=== PATIENT | female | born 1945 | race Caucasian/White ===

== ENCOUNTER 2017-02-08 05:23 | Emergency (ER) | payer MEDICARE, BC ==
--- NOTE | 2017-02-08 06:04 | EDM.PDOC ---
<Jeff Caldera - Last Filed: 02/08/17 06:56> ED HPI GENERAL MEDICAL PROBLEM - General Chief Complaint: General Stated Complaint: R SIDE BACK / ABDOMINAL PAIN Time Seen by Provider: 02/08/17 05:46 Source of Information: Reports: Patient History Limitations: Reports: No Limitations - History of Present Illness INITIAL COMMENTS - FREE TEXT/NARRATIVE: This lady complains of right sided mid back and abdominal pain. It started sometime last night. She said she's been burping a lot. It seemed to start in the right mid back and inserted radiate downward and then around into the right side of her abdomen area and sort of like a cramp. The abdominal portion seems to have gotten better now but it's mostly just her back. She does have a history of kidney stones but says this is different. She denies any chest pain or palpitations. There is no nausea vomiting or diarrhea there is no dysuria. She denies any constipation Right Middle Back Pain Score (Numeric/FACES): 8 - Related Data Allergies Allergy/AdvReac Type Severity Reaction Status Date / Time amoxicillin [Amoxicillin] Allergy Rash Verified 01/20/16 18:25 erythromycin base Allergy Rash Verified 01/20/16 18:25 [Erythromycin Base] glyburide Allergy Rash Verified 01/20/16 18:25 metformin Allergy Rash Verified 01/20/16 18:25 nabumetone Allergy Rash Verified 01/20/16 18:25 Home Meds: Home Meds Aspirin [Children's Aspirin] 81 mg PO DAILY 06/29/13 [History] Atenolol 50 mg PO DAILY 06/29/13 [History] Vitamin E 400 unit PO DAILY 06/29/13 [History] Past Medical History Cardiovascular History: Reports: Hypertension Genitourinary History: Reports: Renal Calculus 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, Musculoskeletal History: Reports: Fracture Neurological History: Reports: Migraines Endocrine/Metabolic History: Reports: Diabetes, Type II - Infectious Disease History Infectious Disease History: Reports: Chicken Pox, Measles, Mumps - Past Surgical History HEENT Surgical History: Reports: Adenoidectomy, Tonsillectomy GI Surgical History: Reports: Appendectomy Female Surgical History: Reports: Ureteral Stent Social & Family History - Tobacco Use Smoking Status *Q: Never Smoker Second Hand Smoke Exposure: No - Caffeine Use Caffeine Use: Reports: None - Recreational Drug Use Recreational Drug Use: No ED ROS GENERAL - Review of Systems Review Of Systems: ROS reveals no pertinent complaints other than HPI. ED EXAM, GENERAL - Physical Exam Exam: See Below Exam Limited By: No Limitations General Appearance: Alert, WD/WN, No Apparent Distress Eye Exam: Bilateral Eye: Normal Inspection Respiratory/Chest: Lungs Clear Cardiovascular: Regular Rate, Rhythm, No Murmur Peripheral Pulses: 2+: Radial (L), Radial (R) GI/Abdominal: Other (Bowel sounds hypoactive. Abdomen is soft on the left but the right side of the abdomen feels full with a mass effect like constipation.) Back Exam: Other (No muscle spasm palpable. There is some mild tenderness in the area of the ribs just superior to the right side CVA. No actual right CVA tenderness however) Extremities: Normal Inspection Neurological: Alert, Oriented Psychiatric: Normal Affect Skin Exam: Warm, Dry Course - Vital Signs Last Recorded V/S: Last Vital Signs Temp 96.6 F 02/08/17 05:33 Pulse 66 02/08/17 08:51 Resp 16 02/08/17 08:51 BP 124/67 02/08/17 08:51 Pulse Ox 99 02/08/17 08:51 - Orders/Labs/Meds Orders: Active Orders 24 hr Category Date Time Status EKG Documentation Completion [RC] ASDIRECTED Care 02/08/17 06:00 Active Peripheral IV Care [RC] . DIRECTED Care 02/08/17 08:32 Active CULTURE URINE [RM] Urgent Lab 02/08/17 09:38 Uncollected Iopamidol [Isovue-300 (61%)] Med 02/08/17 08:48 Active 100 ml IV . DIRECTED PRN Sodium Chloride 0.9% [Normal Saline] 1,000 ml Med 02/08/17 08:45 Active IV ASDIRECTED Sodium Chloride 0.9% [Normal Saline] 75 ml Med 02/08/17 09:00 Active IV ASDIRECTED Sodium Chloride 0.9% [Saline Flush] Med 02/08/17 08:32 Active 10 ml FLUSH ASDIRECTED PRN Peripheral IV Insertion Adult [OM.PC] Urgent Oth 02/08/17 08:31 Ordered EKG 12 Lead [EK] Urgent Ther 02/08/17 05:59 Ordered Medication Orders Sodium Chloride (Normal Saline) 1,000 mls @ 500 mls/hr IV ASDIRECTED KILLIAN Last Admin: 02/08/17 08:44 Dose: 500 mls/hr Sodium Chloride (Normal Saline) 75 mls @ 3 mls/sec IV ASDIRECTED KILLIAN Last Admin: 02/08/17 09:09 Dose: 3 mls/sec Iopamidol (Isovue-300 (61%)) 100 ml IV . DIRECTED PRN PRN Reason: RADIOLOGY EXAM Stop: 02/09/17 08:49 Last Admin: 02/08/17 09:09 Dose: 99 ml Sodium Chloride (Saline Flush) 10 ml FLUSH ASDIRECTED PRN PRN Reason: Keep Vein Open Last Admin: 02/08/17 08:50 Dose: 10 ml Labs: Laboratory Tests 02/08/17 02/08/17 02/08/17 Range/Units 06:10 06:10 08:11 WBC 6.0 (4.5-11.0) K/uL RBC 4.67 (3.30-5.50) M/uL Hgb 13.5 (12.0-15.0) g/dL Hct 39.5 (36.0-48.0) % MCV 85 (80-98) fL MCH 29 (27-31) pg MCHC 34 (32-36) % Plt Count 222 (150-400) K/uL Neut % (Auto) 58 (36-66) % Lymph % (Auto) 29 (24-44) % Frontier % (Auto) 11 H (2-6) % Eos % (Auto) 1 L (2-4) % Baso % (Auto) 1 (0-1) % Sodium 139 L (140-148) mmol/L Potassium 4.0 (3.6-5.2) mmol/L Chloride 104 (100-108) mmol/L Carbon Dioxide 27 (21-32) mmol/L Anion Gap 12.0 (5.0-14.0) mmol/L BUN 14 (7-18) mg/dL Creatinine 0.8 (0.6-1.0) mg/dL Est Cr Clr Drug Dosing 55.29 mL/min Estimated GFR (MDRD) > 60 (>60) Glucose 341 H (74-106) mg/dL Calcium 8.4 L (8.5-10.1) mg/dL Total Bilirubin 0.4 (0.2-1.0) mg/dL AST 12 L (15-37) U/L ALT 21 (12-78) U/L Alkaline Phosphatase 89 (46-116) U/L Total Protein 7.0 (6.4-8.2) g/dL Albumin 3.1 L (3.4-5.0) g/dL Globulin 3.9 H (2.3-3.5) g/dL Albumin/Globulin Ratio 0.8 L (1.2-2.2) Urine Color Yellow Urine Appearance Clear Urine pH 6.0 (4.5-8.0) Ur Specific [place] 1.020 (1.008-1.030) Urine Protein Trace (NEGATIVE) mg/dL Urine Glucose (UA) 1000 H (NEGATIVE) mg/dL Urine Ketones 15 H (NEGATIVE) mg/dL Urine Occult Blood Negative (NEGATIVE) Urine Nitrite Negative (NEGATIVE) Urine Bilirubin Negative (NEGATIVE) Urine Urobilinogen Normal (NORMAL) mg/dL Ur Leukocyte Esterase Small (NEGATIVE) Urine RBC 0-5 (0-5) Urine WBC 5-10 H (0-5) Ur Epithelial Cells Moderate Amorphous Sediment Not seen Urine Bacteria Many Urine Mucus Few Meds: Medications Generic Name Dose Route Start Last Admin Trade Name Freq PRN Reason Stop Dose Admin Sodium Chloride 1,000 mls @ 500 mls/hr 02/08/17 08:45 02/08/17 08:44 Normal Saline IV 500 mls/hr ASDIRECTED KILLIAN Administration Sodium Chloride 75 mls @ 3 mls/sec 02/08/17 09:00 02/08/17 09:09 Normal Saline IV 3 mls/sec ASDIRECTED KILLIAN Administration Iopamidol 100 ml 02/08/17 08:48 02/08/17 09:09 Isovue-300 (61%) IV 02/09/17 08:49 99 ml . DIRECTED PRN Administration RADIOLOGY EXAM Sodium Chloride 10 ml 02/08/17 08:32 02/08/17 08:50 Saline Flush FLUSH 10 ml ASDIRECTED PRN Administration Keep Vein Open Discontinued Medications Generic Name Dose Route Start Last Admin Trade Name Freq PRN Reason Stop Dose Admin Atenolol 50 mg 02/08/17 06:56 02/08/17 08:12 Tenormin PO 02/08/17 06:57 50 mg ONETIME ONE Administration Insulin Human Regular 10 unit 02/08/17 06:55 02/08/17 08:14 Novolin R SUBCUT 02/08/17 06:56 10 unit ONETIME ONE Administration Protocol Ketorolac Tromethamine 30 mg 02/08/17 08:32 02/08/17 08:49 Toradol IVPUSH 02/08/17 08:33 30 mg ONETIME ONE Administration Sodium Chloride 10 ml 02/08/17 08:48 Saline Flush FLUSH 02/08/17 08:49 ONETIME ONE - Re-Assessments/Exams Free Text/Narrative Re-Assessment/Exam: 02/08/17 06:29 EKG shows normal sinus rhythm 63 bpm normal QRS normal ST and T waves Free Text/Narrative Re-Assessment/Exam: 02/08/17 06:56 noted elevated blood pressure. Patient has not taken her morning medication. She says normally it runs about 120. Noted blood sugar approximately 345. Patient says that's what it normally runs. She has tried oral anti-hyperglycemics in the past and did not do well with them. She tried insulins once and it made her lightheaded. She said her doctor knows about this and is encouraged her to get treatment but so far she is declined. She does consent to receiving a small dose of Regular Insulin. Abdominal films do show a moderate amount of stool in the right side of the abdomen which I believe is causing her discomfort. Presently the plan is to give her 10 units of N's Regular Insulin subcutaneously and 50 of atenolol orally and then recheck in about an hour to make sure blood pressure and blood sugar or headed in the right direction. Patient will be turned over to Officer. at 7 AM Departure - Departure Disposition: Home, Self-Care 01 Clinical Impression: Functional constipation - Discharge Information Forms: ED Department Discharge Additional Instructions: Try the MiraLAX one capful per day until loose stools, Please followup with your primary care provider in 3-5 days if not better, please call return to the emergency department with worsening of symptoms. - My Orders Last 24 Hours: My Active Orders 02/08/17 08:31 Peripheral IV Insertion Adult [OM.PC] Urgent 02/08/17 08:32 Peripheral IV Care [RC] . DIRECTED Sodium Chloride 0.9% [Saline Flush] 10 ml FLUSH ASDIRECTED PRN 02/08/17 08:45 Sodium Chloride 0.9% [Normal Saline] 1,000 ml IV ASDIRECTED 02/08/17 08:48 Iopamidol [Isovue-300 (61%)] 100 ml IV . DIRECTED PRN 02/08/17 09:00 Sodium Chloride 0.9% [Normal Saline] 75 ml IV ASDIRECTED 02/08/17 09:38 CULTURE URINE [RM] Urgent - Assessment/Plan Last 24 Hours: My Active Orders 02/08/17 08:31 Peripheral IV Insertion Adult [OM.PC] Urgent 02/08/17 08:32 Peripheral IV Care [RC] . DIRECTED Sodium Chloride 0.9% [Saline Flush] 10 ml FLUSH ASDIRECTED PRN 02/08/17 08:45 Sodium Chloride 0.9% [Normal Saline] 1,000 ml IV ASDIRECTED 02/08/17 08:48 Iopamidol [Isovue-300 (61%)] 100 ml IV . DIRECTED PRN 02/08/17 09:00 Sodium Chloride 0.9% [Normal Saline] 75 ml IV ASDIRECTED 02/08/17 09:38 CULTURE URINE [RM] Urgent <OfficerLars - Last Filed: 02/08/17 09:40> Course - Re-Assessments/Exams Free Text/Narrative Re-Assessment/Exam: Took over care from Dr. Caldera at 7 AM, she continues to have ongoing pain on the right side her lab work EKG chest x-ray as well as urinalysis other than the large amount of stool in the right side I could not identify the source for pain, try Toradol and CT scan of the abdomen for further evaluation 02/08/17 08:34 02/08/17 09:32 pain improved with ketoralac and BS 256 Departure - Departure Time of Disposition: 09:40 Condition: Good - Assessment/Plan Plan: Assessment Acuity = acute Site and laterality = functional constipation complicated patient with diabetes mellitus type 2 Etiology = slow transit time Manifestations = flank pain improved with Toradol Location of injury = Home CBC unremarkable sodium low at 139 consistent hyponatremia, glucose elevated at 341 after treatment 256 consistent hyperglycemia albumin low at 3.1 consistent hypoalbuminemia urinalysis reveals WBCs 5-10 consistent pyuria cultures pending CT scan shows diverticular disease but no active diverticulitis no acute process can be identified for the right sided flank pain Plan I did review CT scan and laboratory results recommend trying MiraLAX for the constipation however follow-up with her primary care in 3-5 days for reevaluation if no improvement Patient was in agreement with the plan all questions were answered, they were instructed to return to the emergency department or call for worsening symptoms. This note was dictated using [employer] voice recognition software please call with any questions.
[2017-02-08] MEDS ORDERED: Insulin Regular, Human 100 Units/ML 10 ML Vial SUBCUT ONE (06:55)
[2017-02-08] MEDS ORDERED: Atenolol 50 MG Tab PO ONE (06:56)
[2017-02-08] MEDS ORDERED: Ketorolac 30 MG/ML SDV IVPUSH ONE (08:32)
[2017-02-08] MEDS ORDERED: Sodium Chloride 0.9% 10 ML Syringe FLUSH PRN (08:32)
[2017-02-08] MEDS ORDERED: Sodium Chloride 0.9% 1,000 ML IV SCH (08:45)
[2017-02-08] MEDS ORDERED: Sodium Chloride 0.9% 10 ML Syringe FLUSH ONE (08:48)
[2017-02-08] MEDS ORDERED: Iopamidol 612 MG/ML 100 ML Bottle IV PRN (08:48)
[2017-02-08 08:52] VITALS: BP 124/67
[2017-02-08] MEDS ORDERED: Sodium Chloride 0.9% 75 ML IV SCH (09:00)
--- NOTE | 2017-02-08 09:22 | CR ---
Abdomen 2V AP Flat Upright HISTORY: right sided pain, rt side mass FINDINGS: Bowel gas pattern is nonspecific. No obstruction or free air is identified. No soft tissue mass, org anomegaly, or abnormal calcifications are seen. Bony structures are diffusely osteopenic. There are degenerative changes lower lumbar spine. Mild lumbar scoliosis convex to the left is noted. Lung bas es are clear. IMPRESSION: Nonspecific bowel gas pattern. No mass organomegaly can be seen. Generalized osteopenia. Degenerativ e changes lower lumbar spine are noted.
--- NOTE | 2017-02-08 09:34 | CT ---
Abdomen Pelvis w Cont HISTORY: right flank pain Axial spiral enhanced CT scan of the abdomen and pelvis was obtained using IV contrast only. Coronal reconstructions were obtained. Comparison CT abdomen and pelvis study is dated 06/29/2013. FINDINGS: Heart size is within normal limits. Lung bases are clear. No focal abnormality of the live r, spleen, gallbladder, pancreas, or adrenal glands is identified. No renal mass or hydronephrosis i s seen. I see no renal or ureteral calculi. No pelvic mass or abnormal fluid collections are seen. There is no pelvic, retroperitoneal, mesenter ic adenopathy. Small bowel loops are nondistended. Appendix is not definitely identified. No inflamm ation or fluid is seen at the base of the cecum. There are multiple diverticuli in the sigmoid colon . I see no signs of acute diverticulitis. No free air or free fluid is noted. Degenerative changes a re noted lower lumbar spine. IMPRESSION: 1. Sigmoid diverticulosis is noted. I see no signs of acute diverticulitis. 2. The uterus appears to be surgically absent. 3. No other acute intra-abdominal or pelvic abnormality is identified. Total DLP 667 mGycm
== END 2017-02-08 09:45 | disposition home or self-care (01) ==
LOC: JP.ED 05:23
DX: K59.04 Chronic idiopathic constipation (principal); I10 Essential (primary) hypertension; Z87.442 Personal history of urinary calculi; E11.9 Type 2 diabetes mellitus without complications; Z90.49 Acquired absence of other specified parts of digestive tract; Z98.890 Other specified postprocedural states; Z79.82 Long term (current) use of aspirin; Z79.899 Other long term (current) drug therapy; Z88.1 Allergy status to other antibiotic agents; Z88.8 Allergy status to other drugs, medicaments and biological substances
CPT/HCPCS: 36415; 74020; 74177; 80053; 81001; 82962; 85025; 93005; 96361; 96374; 99285; A9270; J1885; J7030; J7040; J7050; Q9967; 93010; 99284

== ENCOUNTER 2018-12-31 13:09 | Emergency (ER) | payer MEDICARE, BC ==
[2018-12-31] MEDS ORDERED: Cyclobenzaprine 10 MG Tab PO ONE (13:54)
[2018-12-31] MEDS ORDERED: Ketorolac 30 MG/ML SDV IM ONE (13:54)
--- NOTE | 2018-12-31 13:56 | EDM.PDOC ---
ED HPI GENERAL MEDICAL PROBLEM - General Chief Complaint: Back Pain or Injury Stated Complaint: MID BACK PAIN RADIATES TO STOMACH Time Seen by Provider: 12/31/18 13:50 Source of Information: Reports: Patient, RN Notes Reviewed History Limitations: Reports: No Limitations - History of Present Illness INITIAL COMMENTS - FREE TEXT/NARRATIVE: 73-year-old female presents emergency department today with complaint of low back pain, she states this started a couple days ago is progressively gotten worse it will wax and wane she does not recall any trauma no lifting or twisting injury. No problem with bowel movements no shortness of breath or chest pain pain Pain Score (Numeric/FACES): 8 - Related Data Allergies Allergy/AdvReac Type Severity Reaction Status Date / Time amoxicillin [Amoxicillin] Allergy Rash Verified 12/31/18 13:47 erythromycin base Allergy Rash Verified 12/31/18 13:47 [Erythromycin Base] glyburide Allergy Rash Verified 12/31/18 13:47 metformin Allergy Rash Verified 12/31/18 13:47 nabumetone Allergy Rash Verified 12/31/18 13:47 Home Meds: Home Meds Aspirin [Children's Aspirin] 81 mg PO DAILY 06/29/13 [History] Atenolol 50 mg PO DAILY 06/29/13 [History] Vitamin E 400 unit PO DAILY 06/29/13 [History] Past Medical History Cardiovascular History: Reports: Hypertension Genitourinary History: Reports: Renal Calculus 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 Bleeding, Musculoskeletal History: Reports: Fracture Neurological History: Reports: Migraines Endocrine/Metabolic History: Reports: Diabetes, Type II - Infectious Disease History Infectious Disease History: Reports: Chicken Pox, Measles, Mumps - Past Surgical History HEENT Surgical History: Reports: Adenoidectomy, Tonsillectomy GI Surgical History: Reports: Appendectomy Female Surgical History: Reports: Ureteral Stent Social & Family History - Tobacco Use Smoking Status *Q: Never Smoker - Caffeine Use Caffeine Use: Reports: None - Recreational Drug Use Recreational Drug Use: No ED ROS GENERAL - Review of Systems Review Of Systems: See Below Constitutional: Reports: No Symptoms HEENT: Reports: No Symptoms Respiratory: Reports: No Symptoms Cardiovascular: Reports: No Symptoms GI/Abdominal: Reports: Abdominal Pain. Denies: Nausea, Vomiting Musculoskeletal: Reports: Back Pain Neurological: Reports: No Symptoms ED EXAM,LOWER BACK PAIN/INJURY - Physical Exam Exam: See Below Exam Limited By: No Limitations General Appearance: Alert, WD/WN, No Apparent Distress Respiratory/Chest: No Respiratory Distress, Lungs Clear, Normal Breath Sounds, No Accessory Muscle Use, Chest Non-Tender Cardiovascular: Regular Rate, Rhythm, No Murmur GI/Abdominal: Soft, Non-Tender Back Exam: Normal Inspection, Decreased Range of Motion, Muscle Spasm, Paraspinal Tenderness. No: CVA Tenderness (R), CVA Tenderness (L), Vertebral Tenderness Neurological: No: Straight Leg Raise (L), Straight Leg Raise (R) Course - Vital Signs Last Recorded V/S: Last Vital Signs Temp 98.5 F 12/31/18 13:44 Pulse 65 12/31/18 14:43 Resp 15 12/31/18 14:43 BP 197/81 H 12/31/18 14:43 Pulse Ox 100 12/31/18 14:43 - Orders/Labs/Meds Meds: Medications Discontinued Medications Generic Name Dose Route Start Last Admin Trade Name Freq PRN Reason Stop Dose Admin Cyclobenzaprine HCl 10 mg 12/31/18 13:54 12/31/18 14:02 Flexeril PO 12/31/18 13:55 10 mg ONETIME ONE Administration Ketorolac Tromethamine 30 mg 12/31/18 13:54 12/31/18 14:02 Toradol IM 12/31/18 13:55 30 mg ONETIME ONE Administration Departure - Departure Time of Disposition: 15:15 Disposition: Home, Self-Care 01 Condition: Fair Clinical Impression: Low back pain Qualifiers: Chronicity: acute Back pain laterality: left Sciatica presence: without sciatica Qualified Code(s): M54.5 - Low back pain - Discharge Information Referrals: PCP,None [Primary Care Provider] - Forms: ED Department Discharge Additional Instructions: Take ibuprofen as needed for baseline pain control, use Flexeril as needed for muscle spasms, Please followup with your primary care provider in 3-5 days if not better, please call return to the emergency department with worsening of symptoms. - Assessment/Plan Plan: Assessment Acuity = acute Site and laterality = low back pain Etiology = unclear etiology Manifestations = none Location of injury = Home Lab values = none Plan She had good improvement with Toradol and Flexeril plan is discharge home with Flexeril 10 mg by mouth 3 times a day when necessary total #30 and she will use ibuprofen for baseline pain control follow-up primary care 3-5 days if not better This note was dictated using [employer] voice recognition software please call with any questions on syntax or grammar.
[2018-12-31 14:44] VITALS: BP 197/81; PULSE 65
== END 2018-12-31 15:53 | disposition home or self-care (01) ==
LOC: JP.ED 13:09
DX: M54.5 Low back pain (principal); I10 Essential (primary) hypertension; E11.9 Type 2 diabetes mellitus without complications; Z79.82 Long term (current) use of aspirin; Z88.1 Allergy status to other antibiotic agents; Z88.8 Allergy status to other drugs, medicaments and biological substances
CPT/HCPCS: 96372; 99283; A9270; J1885

== ENCOUNTER 2019-05-09 15:52 | Emergency (ER) | payer MEDICARE, BC ==
[2019-05-09 16:08] VITALS: BP 188/84; PULSE 69
[2019-05-09] MEDS ORDERED: Ketorolac 60 MG/2 ML SDV IM ONE (16:51)
[2019-05-09] MEDS ORDERED: Triamcinolone Acetonide 40 MG/ML 1 ML MDV IM PRN (16:52)
[2019-05-09] MEDS ORDERED: Bupivacaine 0.5% 10 ML SDV INJECT ONE (16:52)
--- NOTE | 2019-05-09 17:10 | EDM.PDOC ---
ED HPI GENERAL MEDICAL PROBLEM - General Chief Complaint: Abdominal Pain Stated Complaint: pain not an accident Time Seen by Provider: 05/09/19 16:45 Source of Information: Reports: Patient, Family History Limitations: Reports: No Limitations - History of Present Illness INITIAL COMMENTS - FREE TEXT/NARRATIVE: 74 year old frail appearing female presents with family due to multiple concerns but most concerning is left hip, back pain which radiates down leg. Pain has been present for over 6 months and discussed with ER provider in December and received a Toradol inject which was helpful for a number of days. Patient has noted decreased in activity, decreased appetite and worsening GI concerns with pain and decreased mobility. Patient had similar hip pain in the right a number of years ago which was injected and had significant relief for quite some time. Family was visiting today so ride was available for assessment. Patient denies fall or injury. Patient has mild mid back pain, left lower back and hip pain which radiates down to knee. Patient is unable to move around in bed due to severity of pain and can only lay on her left side. Patient denies weakness, numbness/tingling or loss of bowel or bladder control. - Related Data Allergies Allergy/AdvReac Type Severity Reaction Status Date / Time amoxicillin [Amoxicillin] Allergy Rash Verified 05/09/19 16:26 erythromycin base Allergy Rash Verified 05/09/19 16:26 [Erythromycin Base] glyburide Allergy Rash Verified 05/09/19 16:26 metformin Allergy Rash Verified 05/09/19 16:26 nabumetone Allergy Rash Verified 05/09/19 16:26 Home Meds: Home Meds Aspirin [Children's Aspirin] 81 mg PO DAILY 06/29/13 [History] Atenolol 50 mg PO DAILY 06/29/13 [History] Vitamin E 400 unit PO DAILY 06/29/13 [History] Past Medical History Cardiovascular History: Reports: Hypertension 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: Reports: Dysfunctional Uterine Bleeding, Musculoskeletal History: Reports: Fracture Neurological History: Reports: Migraines Endocrine/Metabolic History: Reports: Diabetes, Type II - Infectious Disease History Infectious Disease History: Reports: Chicken Pox, Measles, Mumps - Past Surgical History HEENT Surgical History: Reports: Adenoidectomy, Tonsillectomy GI Surgical History: Reports: Appendectomy Female Surgical History: Reports: Ureteral Stent Social & Family History - Tobacco Use Smoking Status *Q: Never Smoker - Caffeine Use Caffeine Use: Reports: None ED ROS GENERAL - Review of Systems Review Of Systems: See Below ED EXAM, GENERAL - Physical Exam Exam: See Below Exam Limited By: Other (hard of hearing) General Appearance: Alert, WD/WN, Moderate Distress (due to left hip pain), Cachetic (very frail thin appearing elderly female ) Eye Exam: Bilateral Eye: EOMI, PERRL Ears: Normal External Exam Nose: Normal Mucosa, No Blood Throat/Mouth: Normal Inspection, Normal Lips, Normal Voice, No Airway Compromise Head: Atraumatic, Normocephalic Neck: Normal Inspection, Limited Range of Motion (not acute ) Respiratory/Chest: No Respiratory Distress, Normal Breath Sounds Cardiovascular: Normal Peripheral Pulses GI/Abdominal: Soft, Non-Tender, Other (very thin) Back Exam: Normal Inspection, Paraspinal Tenderness (left mid thoracic, SI and lateral hip pain. Most signficant point of pain left lateral hip. ) Extremities: Normal Inspection, Normal Range of Motion, Non-Tender, Normal Capillary Refill, No Pedal Edema Neurological: Alert, Oriented, CN II-XII Intact, Normal Cognition, Normal Gait, Normal Reflexes, No Motor/Sensory Deficits Psychiatric: Depressed Mood, Flat Affect Skin Exam: Warm, Dry, Intact, Normal Color, No Rash ED GENERAL MEDICAL PROCEDURES - Additional/Other Procedure(s) Other (Free Text) Procedure(s): Left Trochanteric Injection for acute lateral hip pain. Kenalog 40mg and Sensorcaine 0.5% 10 cc was mixed in a syringe. Area was prepped with Betadine. Point of maximal tenderness was palpation and injection was placed in the area and remaining injection was fanned out in to the area. Warm compress and massages the area for a few minutes. Reassessment 30 minutes after injection. Course - Vital Signs Last Recorded V/S: Last Vital Signs Temp 36.9 C 05/09/19 16:33 Pulse 69 05/09/19 16:33 Resp 17 05/09/19 16:33 BP 188/84 H 05/09/19 16:33 Pulse Ox 96 05/09/19 16:33 - Orders/Labs/Meds Orders: Active Orders 24 hr Category Date Time Status Triamcinolone Acetonide [Kenalog-40] Med 05/09/19 16:52 Active 40 mg IM ASDIRECTED PRN Medication Orders Triamcinolone Acetonide (Kenalog-40) 40 mg IM ASDIRECTED PRN PRN Reason: bursitis Last Admin: 05/09/19 17:19 Dose: 40 mg Meds: Medications Generic Name Dose Route Start Last Admin Trade Name Megan PRN Reason Stop Dose Admin Triamcinolone Acetonide 40 mg 05/09/19 16:52 05/09/19 17:19 Kenalog-40 IM 40 mg ASDIRECTED PRN Administration bursitis Discontinued Medications Generic Name Dose Route Start Last Admin Trade Name Freeloise PRN Reason Stop Dose Admin Bupivacaine HCl 10 ml 05/09/19 16:52 05/09/19 17:19 Sensorcaine-Mpf 0.5% INJECT 05/09/19 16:53 10 ml ONETIME ONE Administration Ketorolac Tromethamine 15 mg 05/09/19 16:51 05/09/19 17:20 Toradol IM 05/09/19 16:52 15 mg ONETIME ONE Administration - Radiology Interpretation Free Text/Narrative:: Thoracic Spine 2V XR: normal vertebral height with slight rotation and spurring osteophytes noted. No obvious wedge compression fracture. Osteopenic. Lumbar Spine 2-3V XR: Normal Vertebral height with lumbar sacral arthritis changes noted and spurring osteophytes. No obvious subluxation or compression fractures noted. Osteopenic. Left Hip w/Pelvis: No acute fracture or dislocation. Osteophyte off right trochanter. No osteophyte off left. Departure - Departure Time of Disposition: 18:45 Disposition: Home, Self-Care 01 Clinical Impression: Trochanteric bursitis of left hip, Hip pain, left, Grief reaction with prolonged bereavement, Mid back pain on left side, Elevated blood pressure reading Low back pain Qualifiers: Chronicity: acute Back pain laterality: left Sciatica presence: without sciatica Qualified Code(s): M54.5 - Low back pain - Discharge Information Instructions: Joint Pain, Trochanteric Bursitis, Radicular Pain, Heat Therapy, Form - Blood Pressure Record Sheet Referrals: PCP,None [Primary Care Provider] - Forms: ED Department Discharge Additional Instructions: 1. Naproxen 250mg every am and pm for inflammation and pain with food. 2. Tylenol 500-1000mg every 6 hours for pain if needed. 3. Call PCP for recheck in 1 week for repeat evaluation of left hip pain and prolonged grief reaction 4. Chronic deconditioning due to pain and decreased activity. Physical Therapy and grief counseling to be considered. 5. Return to ER if concerns changes, worsening symptoms or new concerns. - Problem List & Annotations (1) Low back pain SNOMED Code(s): 051473604 Code(s): M54.5 - LOW BACK PAIN Status: Acute Current Visit: Yes Qualifiers: Chronicity: acute Back pain laterality: left Sciatica presence: without sciatica Qualified Code(s): M54.5 - Low back pain (2) Greater trochanteric bursitis of right hip SNOMED Code(s): 2142677 Code(s): M70.61 - TROCHANTERIC BURSITIS, RIGHT HIP Status: Acute Current Visit: No (3) Grief reaction with prolonged bereavement SNOMED Code(s): 925239968 Code(s): F43.21 - ADJUSTMENT DISORDER WITH DEPRESSED MOOD Status: Acute Current Visit: Yes (4) Mid back pain on left side SNOMED Code(s): 652393761 Code(s): M54.9 - DORSALGIA, UNSPECIFIED Status: Acute Current Visit: Yes - My Orders Last 24 Hours: My Active Orders 05/09/19 16:52 Triamcinolone Acetonide [Kenalog-40] 40 mg IM ASDIRECTED PRN - Assessment/Plan Last 24 Hours: My Active Orders 05/09/19 16:52 Triamcinolone Acetonide [Kenalog-40] 40 mg IM ASDIRECTED PRN
--- NOTE | 2019-05-09 17:43 | CRLCR ---
HISTORY: Left hip pain COMPARISON: None available. FINDINGS: A single AP view of the pelvis shows no sign of fracture or dislocation. The hips are normal in appearance with no significant degenerative changes. There is prominent L4-5 and moderate L5-S1 disc degenerative disease. There is tilting of the lumbar spine towards the left suggesting a left lumbar scoliosis. The soft tissues of the pelvis are unremarkable. IMPRESSION: Normal appearance of the hips. No sign of any abnormality of the bony pelvis. Prominent L4-5 and moderate L5-S1 disc degenerative disease. Dictated by Tank Ho MD @ May 09 2019 5:40PM Signed by Dr. Tank Ho @ May 09 2019 5:41PM
--- NOTE | 2019-05-09 17:45 | CRLCR ---
HISTORY: Pain COMPARISON: None available. FINDINGS: The lumbar spine was examined with AP, lateral, and lateral spot views for a total of three views. There is minimal scoliosis of the lumbar spine convex towards the left. There is no sign of fracture or subluxation. The vertebral bodies are normal in height and they are in anatomic alignment. There is prominent L4-5 disc degenerative disease. There is moderate L1-2, L2-3, and L5-S1 disc degenerative disease. The L3-4 disc space is normal in height. The visualized bony pelvis and bowel gas pattern are normal in appearance. IMPRESSION: Prominent L4-5 disc degenerative disease. Moderate L1-2, L2-3, and L5-S1 disc degenerative disease. Dictated by Tank Ho MD @ May 09 2019 5:40PM Signed by Dr. Tank Ho @ May 09 2019 5:43PM
--- NOTE | 2019-05-09 17:45 | CRLCR ---
INDICATION: Back pain COMPARISON: None available. TECHNIQUE: AP and lateral views of the thoracic spine were obtained for a total of two views. FINDINGS: There is no sign of fracture or subluxation. The intervertebral discs are normal in height. The vertebral bodies are normal in height and are in anatomic alignment. The visualized portions of the chest are normal in appearance. IMPRESSION: Normal thoracic spine. Dictated by Tank Ho MD @ May 09 2019 5:40PM Signed by Dr. Tank Ho @ May 09 2019 5:44PM
== END 2019-05-09 19:03 | disposition home or self-care (01) ==
LOC: JP.ED 15:52
DX: M70.62 Trochanteric bursitis, left hip (principal); M54.6 Pain in thoracic spine; M54.5 Low back pain; F43.21 Adjustment disorder with depressed mood; I10 Essential (primary) hypertension; E11.9 Type 2 diabetes mellitus without complications; Z79.82 Long term (current) use of aspirin; Z88.8 Allergy status to other drugs, medicaments and biological substances; Z88.0 Allergy status to penicillin; Z88.1 Allergy status to other antibiotic agents; Z79.899 Other long term (current) drug therapy
CPT/HCPCS: 20610; 72070; 72100; 72170; 96372; 99283; J1885; J3301; J3490

== ENCOUNTER 2019-06-13 11:46 | Emergency (ER) | payer MEDICARE, BC ==
[2019-06-13 12:03] VITALS: BP 181/78; PULSE 78
--- NOTE | 2019-06-13 12:30 | EDM.PDOC ---
ED HPI GENERAL MEDICAL PROBLEM - General Chief Complaint: Back Pain or Injury Stated Complaint: PAIN IN MIDDLE OF BACK AND GOES DOWN LEGS Time Seen by Provider: 06/13/19 12:15 Source of Information: Reports: Patient, Family History Limitations: Reports: No Limitations - History of Present Illness INITIAL COMMENTS - FREE TEXT/NARRATIVE: 74-year-old female with chronic left hip and left leg pain, being treated for sciatica including physical therapy. The pain is increased over the past several days and she is unable to lay on her left side, she is having difficulty sleeping and ambulating. Her pain is similar to when she responded to a greater trochanteric bursitis injection 6 months ago. No fevers or chills , no recent falls, no new trauma. Onset: Gradual Duration: Day(s): (Intense worsening of the pain over the past 3 days) Location: Reports: Lower Extremity, Left Worsens with: Reports: Other (Weightbearing), Movement Associated Symptoms: Reports: No Other Symptoms Left Buttock Pain Score (Numeric/FACES): 8 - Related Data Allergies Allergy/AdvReac Type Severity Reaction Status Date / Time amoxicillin [Amoxicillin] Allergy Rash Verified 06/13/19 12:01 erythromycin base Allergy Rash Verified 06/13/19 12:01 [Erythromycin Base] glyburide Allergy Rash Verified 06/13/19 12:01 metformin Allergy Rash Verified 06/13/19 12:01 nabumetone Allergy Rash Verified 06/13/19 12:01 Home Meds: Home Meds Aspirin [Children's Aspirin] 81 mg PO DAILY 06/29/13 [History] Atenolol 50 mg PO DAILY 06/29/13 [History] Vitamin E 400 unit PO DAILY 06/29/13 [History] Past Medical History HEENT History: Reports: Impaired Vision Cardiovascular History: Reports: Hypertension Gastrointestinal History: Reports: None 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 Bleeding, Musculoskeletal History: Reports: Fracture Neurological History: Reports: Migraines Psychiatric History: Reports: Anxiety Endocrine/Metabolic History: Reports: Diabetes, Type II - Infectious Disease History Infectious Disease History: Reports: Chicken Pox, Measles, Mumps - Past Surgical History Head Surgeries/Procedures: Reports: None HEENT Surgical History: Reports: Adenoidectomy, Tonsillectomy Cardiovascular Surgical History: Reports: None GI Surgical History: Reports: Appendectomy Female Surgical History: Reports: Ureteral Stent Endocrine Surgical History: Reports: None Neurological Surgical History: Reports: None Musculoskeletal Surgical History: Reports: None Dermatological Surgical History: Reports: None Social & Family History - Tobacco Use Smoking Status *Q: Never Smoker Second Hand Smoke Exposure: No - Caffeine Use Caffeine Use: Reports: None - Recreational Drug Use Recreational Drug Use: No ED ROS GENERAL - Review of Systems Review Of Systems: See Below Constitutional: Denies: Fever, Chills HEENT: Reports: No Symptoms Respiratory: Denies: Shortness of Breath Cardiovascular: Denies: Chest Pain GI/Abdominal: Denies: Abdominal Pain, Nausea, Vomiting Skin: Denies: Bruising Neurological: Denies: Paresthesia ED EXAM,LOWER BACK PAIN/INJURY - Physical Exam Exam: See Below Exam Limited By: No Limitations General Appearance: Alert, No Apparent Distress, Other (Fairly comfortable with lying still) Head: Atraumatic Neck: Normal Inspection Respiratory/Chest: No Respiratory Distress Extremities: Other (No significant pain with internal or external rotation of the left leg at the hip, or with straight leg raising. She is very tender to palpation over the proximal gluteus on the left side but also over the greater trochanteric bursa.) Course - Vital Signs Last Recorded V/S: Last Vital Signs Temp 97.3 F 06/13/19 12:03 Pulse 78 06/13/19 12:03 Resp 16 06/13/19 12:03 BP 181/78 H 06/13/19 12:03 Pulse Ox 98 06/13/19 12:03 - Orders/Labs/Meds Meds: Medications Discontinued Medications Generic Name Dose Route Start Last Admin Trade Name Megan PRN Reason Stop Dose Admin Bupivacaine HCl 9 ml 06/13/19 12:45 06/13/19 12:44 Sensorcaine-Mpf 0.5% IARTIC 06/13/19 12:46 9 ml ONETIME ONE Administration Triamcinolone Acetonide 40 mg 06/13/19 12:45 06/13/19 12:44 Kenalog-40 IARTIC 06/13/19 12:46 40 mg ONETIME ONE Administration - Re-Assessments/Exams Free Text/Narrative Re-Assessment/Exam: 06/13/19 12:30 The left bursa area was sterilized with Betadine, and will be infiltrated with 9 cc of 0.5% Marcaine with 40 mg of Kenalog. 06/13/19 12:48 After the injection the symptoms almost completely resolved. Patient will recheck next week if not improved satisfactorily. Departure - Departure Time of Disposition: 12:56 Disposition: Home, Self-Care 01 Clinical Impression: Greater trochanteric bursitis of left hip - Discharge Information Instructions: Hip Bursitis, [id number] Referrals: Nichole Coates PA-C [Primary Care Provider] - Forms: ED Department Discharge Care Plan Goals: Increase activity as tolerated, 1 or 2 doses a day of anti-inflammatory such as ibuprofen or naproxen will be helpful. Recheck next week if not improved satisfactorily. Sepsis Event Note - Evaluation Sepsis Screening Result: No Definite Risk - Focused Exam Vital Signs: Vital Signs Temp Pulse Resp BP Pulse Ox 06/13/19 12:03 97.3 F 78 16 181/78 H 98 06/13/19 12:02 97.3 F 78 16 181/78 H 98 Date Exam was Performed: 06/13/19 Time Exam was Performed: 14:04
[2019-06-13] MEDS ORDERED: Triamcinolone Acetonide 40 MG/ML 1 ML MDV IARTIC ONE (12:45)
[2019-06-13] MEDS ORDERED: Bupivacaine 0.5% 10 ML SDV IARTIC ONE (12:45)
== END 2019-06-13 12:56 | disposition home or self-care (01) ==
LOC: JP.ED 11:46
DX: M70.62 Trochanteric bursitis, left hip (principal); I10 Essential (primary) hypertension; E11.9 Type 2 diabetes mellitus without complications; Z88.0 Allergy status to penicillin; Z88.1 Allergy status to other antibiotic agents; Z88.8 Allergy status to other drugs, medicaments and biological substances; Z88.6 Allergy status to analgesic agent; Z79.82 Long term (current) use of aspirin; Z79.899 Other long term (current) drug therapy
CPT/HCPCS: 20610; 99283; J3301; J3490

== ENCOUNTER 2019-07-11 02:15 | Emergency (ER) | payer MEDICARE, BC ==
[2019-07-11 02:41] VITALS: BP 196/79; PULSE 78
[2019-07-11] MEDS ORDERED: Acetaminophen/HYDROcodone 325-5 MG Tab PO ONE (03:11)
--- NOTE | 2019-07-11 03:17 | EDM.PDOC ---
ED HPI GENERAL MEDICAL PROBLEM - General Chief Complaint: Back Pain or Injury Stated Complaint: HIP/LEFT LEG PAIN Time Seen by Provider: 07/11/19 03:00 Source of Information: Reports: Patient, Old Records, RN History Limitations: Reports: No Limitations - History of Present Illness INITIAL COMMENTS - FREE TEXT/NARRATIVE: 74 yo female here with L buttocks and L lateral hip pain. Has been dealing with this for many months. Went to the clinic for it and was given ibuprofen and a referral to PT. She didn't finish with the program at PT because she had a fall in the parking lot at the hospital and after that it was too painful. Did see [facility] and didn't get any satisfaction. Has been to the ER a couple of times for this and got injections that gave her temporary help. Can't sleep tonight due to the pain so returns. Has pain radiating down to her knee she reports. Has pain to the posterior L hip with walking. 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 Left Hip Pain Score (Numeric/FACES): 8 - Related Data Allergies Allergy/AdvReac Type Severity Reaction Status Date / Time amoxicillin [Amoxicillin] Allergy Rash Verified 07/11/19 02:36 erythromycin base Allergy Rash Verified 07/11/19 02:36 [Erythromycin Base] glyburide Allergy Rash Verified 07/11/19 02:36 metformin Allergy Rash Verified 07/11/19 02:36 nabumetone Allergy Rash Verified 07/11/19 02:36 Home Meds: Home Meds Aspirin [Children's Aspirin] 81 mg PO DAILY 06/29/13 [History] Vitamin E 400 unit PO DAILY 06/29/13 [History] atenoloL [Atenolol] 50 mg PO DAILY 06/29/13 [History] Dulaglutide [Trulicity] 0.75 mg SQ ASDIRECTED 07/11/19 [History] Ibuprofen [Ibu] 600 mg PO Q6HR PRN 07/11/19 [History] Losartan [Cozaar] 50 mg PO DAILY 07/11/19 [History] Past Medical History HEENT History: Reports: Impaired Vision Cardiovascular History: Reports: Hypertension Gastrointestinal History: Reports: None 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, Musculoskeletal History: Reports: Fracture Neurological History: Reports: Migraines Psychiatric History: Reports: Anxiety Endocrine/Metabolic History: Reports: Diabetes, Type II - Infectious Disease History Infectious Disease History: Reports: Chicken Pox - Past Surgical History Head Surgeries/Procedures: Reports: None HEENT Surgical History: Reports: Adenoidectomy, Tonsillectomy Cardiovascular Surgical History: Reports: None GI Surgical History: Reports: Appendectomy Female Surgical History: Reports: Ureteral Stent Endocrine Surgical History: Reports: None Neurological Surgical History: Reports: None Musculoskeletal Surgical History: Reports: None Dermatological Surgical History: Reports: None Social & Family History - Tobacco Use Smoking Status *Q: Never Smoker Second Hand Smoke Exposure: No - Caffeine Use Caffeine Use: Reports: Coffee - Recreational Drug Use Recreational Drug Use: No ED ROS GENERAL - Review of Systems Review Of Systems: See Below Constitutional: Reports: No Symptoms Musculoskeletal: Reports: Joint Pain (L hip area) Skin: Reports: No Symptoms Neurological: Reports: No Symptoms ED EXAM,LOWER BACK PAIN/INJURY - Physical Exam Exam: See Below Exam Limited By: No Limitations General Appearance: Alert, WD/WN, No Apparent Distress Back Exam: Normal Inspection, Other (L SI joint pain). No: CVA Tenderness (R), CVA Tenderness (L), Decreased Range of Motion, Muscle Spasm, Paraspinal Tenderness, Vertebral Tenderness Extremities: Normal Inspection, Normal Range of Motion, Non-Tender, No Pedal Edema, Other (internal and external rotation of the L hip is not painful with full ROM. Tenderness to the trochanteric bursa noted on left. L SI joint pain on palpation. Negative straight leg raising on left. No increase in pain with coughing. ). No: Pedal Edema, Limited Range of Motion, Increased Warmth Neurological: Alert, Normal Mood/Affect, CN II-XII Intact, No Motor/Sensory Deficits, Oriented x 3 Skin Exam: Warm, Dry, Intact, Normal Color, No Rash Course - Vital Signs Last Recorded V/S: Last Vital Signs Temp 35.9 C 07/11/19 02:39 Pulse 78 07/11/19 02:39 Resp 14 07/11/19 02:39 BP 196/79 H 07/11/19 02:39 Pulse Ox 99 07/11/19 02:39 - Orders/Labs/Meds Orders: Active Orders 24 hr Category Date Time Status Acetaminophen/HYDROcodone [[place] 325-5 MG] Med 07/11/19 03:11 Once 1 tab PO ONETIME ONE Departure - Departure Time of Disposition: 03:30 Disposition: Home, Self-Care 01 Condition: Fair Clinical Impression: Greater trochanteric bursitis of left hip, Chronic left sacroiliac joint pain - Discharge Information *PRESCRIPTION DRUG MONITORING PROGRAM REVIEWED*: No *COPY OF PRESCRIPTION DRUG MONITORING REPORT IN PATIENT IDRIS: No Instructions: Hip Bursitis, [id number], Sacroiliac Joint Dysfunction Referrals: Nichole Coates PA-C [Primary Care Provider] - Additional Instructions: Continue your ibuprofen, make sure you take it with food. Might be bauman to reduce the dose to 400 mg every 6 hrs. Add either acetaminophen OR [place] for added pain relief. Follow up with Dr. Draper(orthopedics) for definitive care. Practice the stretches I showed you in the ER as this will help the bursitis pain you have. Use caution with driving if you are taking the [place]. Take ample fluids and fiber on the [place] to prevent constipation. Sepsis Event Note - Evaluation Sepsis Screening Result: No Definite Risk - Focused Exam Vital Signs: Vital Signs Temp Pulse Resp BP Pulse Ox 07/11/19 02:39 35.9 C 78 14 196/79 H 99 Date Exam was Performed: 07/11/19 Time Exam was Performed: 03:12 - My Orders Last 24 Hours: My Active Orders 07/11/19 03:11 Acetaminophen/HYDROcodone [[place] 325-5 MG] 1 tab PO ONETIME ONE - Assessment/Plan Last 24 Hours: My Active Orders 07/11/19 03:11 Acetaminophen/HYDROcodone [[place] 325-5 MG] 1 tab PO ONETIME ONE
== END 2019-07-11 03:48 | disposition home or self-care (01) ==
LOC: JP.ED 02:15
DX: M70.62 Trochanteric bursitis, left hip (principal); M53.3 Sacrococcygeal disorders, not elsewhere classified; I10 Essential (primary) hypertension; E11.9 Type 2 diabetes mellitus without complications; Z90.49 Acquired absence of other specified parts of digestive tract; Z88.1 Allergy status to other antibiotic agents; Z88.8 Allergy status to other drugs, medicaments and biological substances; Z79.82 Long term (current) use of aspirin; Z79.899 Other long term (current) drug therapy; Z98.890 Other specified postprocedural states
CPT/HCPCS: 99283; A9270

== ENCOUNTER 2019-11-05 14:02 | Emergency (ER) | payer MEDICARE, BC ==
--- NOTE | 2019-11-05 14:30 | EDM.PDOC ---
ED HPI GENERAL MEDICAL PROBLEM - General Chief Complaint: Back Pain or Injury Stated Complaint: HEART ISSUES Time Seen by Provider: 11/05/19 14:19 Source of Information: Reports: Patient, RN Notes Reviewed History Limitations: Reports: No Limitations - History of Present Illness INITIAL COMMENTS - FREE TEXT/NARRATIVE: 74-year-old female presents the emergency department a complaint of pain underneath the right shoulder blade, she states is been there for a couple weeks she has no problem with arm movements she states the pain is mainly in the back underneath the shoulder blade. She has no shortness of breath nausea vomiting chest pain. She was being evaluated in the orthopedic clinic today for hip pain noticed her blood pressure was elevated and complained of the shoulder pain was sent to the emergency department for further evaluation. She does admit to doing some raking of her yard about 2 weeks ago - Related Data Allergies Allergy/AdvReac Type Severity Reaction Status Date / Time amoxicillin [Amoxicillin] Allergy Rash Verified 11/05/19 14:09 erythromycin base Allergy Rash Verified 11/05/19 14:09 [Erythromycin Base] glyburide Allergy Rash Verified 11/05/19 14:09 metformin Allergy Rash Verified 11/05/19 14:09 nabumetone Allergy Rash Verified 11/05/19 14:09 Home Meds: Home Meds Aspirin [Children's Aspirin] 81 mg PO DAILY 06/29/13 [History] Vitamin E 400 unit PO DAILY 06/29/13 [History] atenoloL [Atenolol] 50 mg PO DAILY 06/29/13 [History] Ibuprofen [Ibu] 600 mg PO Q6HR PRN 07/11/19 [History] Losartan [Cozaar] 50 mg PO DAILY 07/11/19 [History] Triamcinolone Acetonide [Triamcinolone Acetonide 0.5%] 1 applic TOP BID [History] Past Medical History HEENT History: Reports: Impaired Vision Cardiovascular History: Reports: Hypertension Genitourinary History: Reports: Renal Calculus 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 right hip pain Neurological History: Reports: Migraines Psychiatric History: Reports: Anxiety Endocrine/Metabolic History: Reports: Diabetes, Type II Hematologic History: Reports: None Immunologic History: Reports: None Oncologic (Cancer) History: Reports: None Dermatologic History: Reports: None - Infectious Disease History Infectious Disease History: Reports: Chicken Pox - Past Surgical History Head Surgeries/Procedures: Reports: None HEENT Surgical History: Reports: Adenoidectomy, Tonsillectomy GI Surgical History: Reports: Appendectomy Female Surgical History: Reports: Ureteral Stent Musculoskeletal Surgical History: Reports: None Dermatological Surgical History: Reports: None Social & Family History - Caffeine Use Caffeine Use: Reports: None ED ROS GENERAL - Review of Systems Review Of Systems: See Below Constitutional: Reports: No Symptoms HEENT: Reports: No Symptoms Respiratory: Reports: No Symptoms Cardiovascular: Reports: No Symptoms GI/Abdominal: Reports: No Symptoms Musculoskeletal: Reports: Shoulder Pain ED EXAM, GENERAL - Physical Exam Exam: See Below Exam Limited By: No Limitations General Appearance: Alert, WD/WN, No Apparent Distress Neck: Normal Inspection, Supple, Non-Tender, Full Range of Motion Respiratory/Chest: No Respiratory Distress, Lungs Clear, Normal Breath Sounds, No Accessory Muscle Use, Chest Non-Tender Cardiovascular: Regular Rate, Rhythm, No Murmur GI/Abdominal: Soft, Non-Tender Back Exam: Normal Inspection, Full Range of Motion. No: CVA Tenderness (R), CVA Tenderness (L) Extremities: No Pedal Edema Course - Vital Signs Last Recorded V/S: Last Vital Signs Temp 96.8 F L 11/05/19 14:08 Pulse 70 11/05/19 17:15 Resp 10 L 11/05/19 17:15 BP 189/82 H 11/05/19 17:15 Pulse Ox 97 11/05/19 17:15 - Orders/Labs/Meds Orders: Active Orders 24 hr Category Date Time Status Cardiac Monitoring [RC] .As Directed Care 11/05/19 14:26 Active EKG Documentation Completion [RC] ASDIRECTED Care 11/05/19 14:26 Active EKG 12 Lead [EK] Stat Ther 11/05/19 14:26 Ordered Labs: Laboratory Tests 11/05/19 11/05/19 11/05/19 Range/Units 14:38 14:38 14:38 WBC 7.0 (4.5-11.0) K/uL RBC 4.47 (3.30-5.50) M/uL Hgb 12.6 (12.0-15.0) g/dL Hct 38.0 (36.0-48.0) % MCV 85 (80-98) fL MCH 28 (27-31) pg MCHC 33 (32-36) % Plt Count 255 (150-400) K/uL Neut % (Auto) 69 H (36-66) % Lymph % (Auto) 21 L (24-44) % [place] % (Auto) 9 H (2-6) % Eos % (Auto) 1 L (2-4) % Baso % (Auto) 0 (0-1) % Sodium 135 L (140-148) mmol/L Potassium 3.3 L (3.6-5.2) mmol/L Chloride 98 L (100-108) mmol/L Carbon Dioxide 31 (21-32) mmol/L Anion Gap 9.3 (5.0-14.0) mmol/L BUN 18 (7-18) mg/dL Creatinine 0.8 (0.6-1.0) mg/dL Est Cr Clr Drug Dosing 48.06 mL/min Estimated GFR (MDRD) > 60 (>60) Glucose 339 H (74-106) mg/dL Calcium 8.7 (8.5-10.1) mg/dL Total Bilirubin 0.6 (0.2-1.0) mg/dL AST 16 (15-37) U/L ALT 26 (12-78) U/L Alkaline Phosphatase 71 (46-116) U/L Troponin I < 0.017 (0.000-0.056) ng/mL Total Protein 6.2 L (6.4-8.2) g/dL Albumin 3.1 L (3.4-5.0) g/dL Globulin 3.1 (2.3-3.5) g/dL Albumin/Globulin Ratio 1.0 L (1.2-2.2) Meds: Medications Discontinued Medications Generic Name Dose Route Start Last Admin Trade Name Freq PRN Reason Stop Dose Admin Losartan Potassium 50 mg 11/05/19 15:50 11/05/19 16:01 Cozaar PO 11/05/19 15:51 50 mg ONETIME ONE Administration Departure - Departure Time of Disposition: 17:27 Disposition: Home, Self-Care 01 Condition: Fair Clinical Impression: Right shoulder pain Qualifiers: Chronicity: acute Qualified Code(s): M25.511 - Pain in right shoulder Instructions: Shoulder Pain, [id number] Referrals: PCP,None [Primary Care Provider] - Forms: ED Department Discharge Additional Instructions: Continue with your regular medications, please followup with your primary care provider in 3-5 days if not better, please call return to the emergency department with worsening of symptoms. Sepsis Event Note - Evaluation Sepsis Screening Result: No Definite Risk - Focused Exam Vital Signs: Vital Signs Temp Pulse Resp BP BP Pulse Ox 11/05/19 17:15 70 10 L 189/82 H 97 11/05/19 16:01 220/90 H 11/05/19 15:53 65 12 220/90 H 96 11/05/19 15:00 66 12 232/91 H 98 11/05/19 14:08 96.8 F L 70 11 L 164/86 H 100 Date Exam was Performed: 11/05/19 Time Exam was Performed: 17:26 - My Orders Last 24 Hours: My Active Orders 11/05/19 14:26 Cardiac Monitoring [RC] .As Directed EKG Documentation Completion [RC] ASDIRECTED EKG 12 Lead [EK] Stat - Assessment/Plan Last 24 Hours: My Active Orders 11/05/19 14:26 Cardiac Monitoring [RC] .As Directed EKG Documentation Completion [RC] ASDIRECTED EKG 12 Lead [EK] Stat Plan: Assessment Acuity = acute Site and laterality = right shoulder pain Etiology = secondary to overuse injury Manifestations = none Location of injury = Home Lab values = CBC unremarkable sodium low at 135 consistent hyponatremia potassium low at 3.3 consistent hypokalemia glucose elevated 339 consistent hyperglycemia troponin was negative EKG demonstrates a sinus rhythm with left ventricular hypertrophy, chest x-ray shows no acute process Plan I did review lab work chest x-ray EKG results with her she has been having labile blood pressures that she is working on with her primary care provider systolic range in the ED was anything from 160 - 250 systolically, have her follow-up with her primary care in the next 3 to 5 days for reevaluation, did increase her losartan to 100 mg daily This note was dictated using [employer] voice recognition software please call with any questions on syntax or grammar.
--- NOTE | 2019-11-05 14:48 | CR ---
CHEST: 2 view CLINICAL HISTORY:Chest pain COMPARISON:None FINDINGS: The heart size, pulmonary vascularity and hilar structures are normal. No infiltrate effusion or pneumothorax is seen. IMPRESSION: No acute cardiopulmonary process.
[2019-11-05] MEDS ORDERED: Losartan 50 MG Tab PO ONE (15:50)
[2019-11-05 17:15] VITALS: BP 189/82; PULSE 70
== END 2019-11-05 17:42 | disposition home or self-care (01) ==
LOC: JP.ED 14:02
DX: M25.511 Pain in right shoulder (principal); M25.551 Pain in right hip; I10 Essential (primary) hypertension; E87.6 Hypokalemia; E87.1 Hypo-osmolality and hyponatremia; E11.9 Type 2 diabetes mellitus without complications; Z79.82 Long term (current) use of aspirin; Z79.899 Other long term (current) drug therapy; Z88.1 Allergy status to other antibiotic agents; Z88.8 Allergy status to other drugs, medicaments and biological substances; M16.11 Unilateral primary osteoarthritis, right hip; M76.9 Unspecified enthesopathy, lower limb, excluding foot
CPT/HCPCS: 36415; 71046; 80053; 84484; 85025; 93005; 99283; 99284; A9270; 93010

== ENCOUNTER 2019-11-09 05:11 | Observation (INO) | payer MEDICARE, BC ==
[2019-11-09] MEDS ORDERED: HYDROmorphone 0.5 MG/0.5 ML Syringe IVPUSH ONE (05:55)
[2019-11-09] MEDS ORDERED: Sodium Chloride 0.9% 10 ML Syringe FLUSH PRN ×2 (05:55→10:52)
[2019-11-09] MEDS ORDERED: hydrALAZINE 20 MG/ML SDV IVPUSH ONE ×2 (05:55→08:55)
--- NOTE | 2019-11-09 06:10 | EDM.PDOC ---
<Levi Santacruz - Last Filed: 11/09/19 06:13> ED HPI GENERAL MEDICAL PROBLEM - General Chief Complaint: Abdominal Pain Stated Complaint: BACK PAIN Time Seen by Provider: 11/09/19 05:50 Source of Information: Reports: Patient, Old Records History Limitations: Reports: No Limitations - History of Present Illness INITIAL COMMENTS - FREE TEXT/NARRATIVE: 74 yo female presents with low back pain that kept her up all night. She took ibuprofen without relief. Was referred to the ER by orthopedics last for very high BP and she had a work up at that time mainly for the HTN. She followed up with her doctor in the clinic and her losartan was raised to 100 mg from 50 mg. On neither of those encounters was she given anything for her pain. She mentions that orthopedics was talking about PT but this never got finalized. Her pain is across her sacrum and is not worsened by movement. She does not recall any injuries. She feels a little better sitting up. Onset: Gradual Duration: Day(s):, Getting Worse Location: Reports: Back (low) Quality: Reports: Ache Severity: Moderate Improves with: Reports: None Worsens with: Reports: Other (? time) Context: Reports: Other (see HPI) Associated Symptoms: Reports: Other (? HTN). 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 Lower Back Pain Score (Numeric/FACES): 10 - Related Data Allergies Allergy/AdvReac Type Severity Reaction Status Date / Time amoxicillin [Amoxicillin] Allergy Rash Verified 11/05/19 14:09 erythromycin base Allergy Rash Verified 11/05/19 14:09 [Erythromycin Base] glyburide Allergy Rash Verified 11/05/19 14:09 metformin Allergy Rash Verified 11/05/19 14:09 nabumetone Allergy Rash Verified 11/05/19 14:09 Home Meds: Home Meds Aspirin [Children's Aspirin] 81 mg PO DAILY 06/29/13 [History] Vitamin E 400 unit PO DAILY 06/29/13 [History] atenoloL [Atenolol] 50 mg PO DAILY 06/29/13 [History] Ibuprofen [Ibu] 600 mg PO Q6HR PRN 07/11/19 [History] Losartan Potassium 100 mg PO DAILY 11/09/19 [History] Past Medical History HEENT History: Reports: Impaired Vision Cardiovascular History: Reports: Hypertension Respiratory History: Reports: None Gastrointestinal History: Reports: None Genitourinary History: Reports: Renal Calculus 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 right hip pain Neurological History: Reports: Migraines Psychiatric History: Reports: Anxiety Endocrine/Metabolic History: Reports: Diabetes, Type II Hematologic History: Reports: None Immunologic History: Reports: None Oncologic (Cancer) History: Reports: None Dermatologic History: Reports: None - Infectious Disease History Infectious Disease History: Reports: Chicken Pox - Past Surgical History Head Surgeries/Procedures: Reports: None HEENT Surgical History: Reports: Adenoidectomy, Tonsillectomy GI Surgical History: Reports: Appendectomy Female Surgical History: Reports: Ureteral Stent Musculoskeletal Surgical History: Reports: None Dermatological Surgical History: Reports: None Social & Family History - Tobacco Use Smoking Status *Q: Never Smoker - Caffeine Use Caffeine Use: Reports: None - Recreational Drug Use Recreational Drug Use: No ED ROS GENERAL - Review of Systems Review Of Systems: See Below Constitutional: Reports: No Symptoms HEENT: Reports: No Symptoms Respiratory: Reports: No Symptoms Cardiovascular: Reports: No Symptoms. Denies: Chest Pain Endocrine: Reports: No Symptoms GI/Abdominal: Reports: No Symptoms : Reports: No Symptoms Musculoskeletal: Reports: Back Pain (low) Skin: Reports: No Symptoms Neurological: Reports: No Symptoms. Denies: Headache Psychiatric: Reports: No Symptoms ED EXAM,LOWER BACK PAIN/INJURY - Physical Exam Exam: See Below Exam Limited By: No Limitations General Appearance: Alert, WD/WN, No Apparent Distress Eye Exam: Bilateral Eye: Normal Inspection Ears: Normal External Exam, Normal Canal, Hearing Grossly Normal, Normal TMs Nose: Normal Inspection, No Blood Throat/Mouth: Normal Inspection, Normal Lips, Normal Oropharynx, Normal Voice, No Airway Compromise Head: Atraumatic, Normocephalic Neck: Normal Inspection Respiratory/Chest: No Respiratory Distress, Lungs Clear, Normal Breath Sounds, No Accessory Muscle Use Cardiovascular: Regular Rate, Rhythm, No Edema GI/Abdominal: Normal Bowel Sounds, Soft, Non-Tender, No Distention Back Exam: Normal Inspection, Other (palpation of her sacrum is non-tender, but she states this is where she feels the pain. ). No: CVA Tenderness (R), CVA Tenderness (L), Muscle Spasm, Paraspinal Tenderness, Vertebral Tenderness Extremities: Normal Inspection, Normal Range of Motion, Non-Tender, No Pedal Edema Neurological: Alert, Normal Mood/Affect, CN II-XII Intact, No Motor/Sensory Deficits, Oriented x 3 Psychiatric: Normal Affect, Normal Mood Skin Exam: Warm, Dry, Intact, Normal Color, No Rash Course - Vital Signs Last Recorded V/S: Last Vital Signs Temp 97 F 11/09/19 05:39 Pulse 67 11/09/19 05:39 Resp 14 11/09/19 05:39 BP 215/79 H 11/09/19 05:39 Pulse Ox 100 11/09/19 05:39 - Orders/Labs/Meds Orders: Active Orders 24 hr Category Date Time Status UA W/MICROSCOPIC [URIN] Stat Lab 11/09/19 08:44 Received Sodium Chloride 0.9% [Normal Saline] 74 ml Med 11/09/19 06:15 Active IV ASDIRECTED Sodium Chloride 0.9% [Saline Flush] Med 11/09/19 05:55 Active 10 ml FLUSH ASDIRECTED PRN Saline Lock Insert [OM.PC] Routine Oth 11/09/19 05:55 Ordered Medication Orders Sodium Chloride (Normal Saline) 74 mls @ 3 mls/sec IV ASDIRECTED KILLIAN Last Admin: 11/09/19 06:36 Dose: 3 mls/sec Sodium Chloride (Saline Flush) 10 ml FLUSH ASDIRECTED PRN PRN Reason: Keep Vein Open Labs: Laboratory Tests 11/09/19 11/09/19 11/09/19 Range/Units 06:10 06:10 07:11 ESR 16 (0-25) mm/hr Sodium 136 L 136 L (140-148) mmol/L Potassium 3.5 L 3.5 L (3.6-5.2) mmol/L Chloride 98 L 98 L (100-108) mmol/L Carbon Dioxide 30 29 (21-32) mmol/L Anion Gap 11.5 12.5 (5.0-14.0) mmol/L BUN 15 15 (7-18) mg/dL Creatinine 0.7 0.8 (0.6-1.0) mg/dL Est Cr Clr Drug Dosing 54.92 48.06 mL/min Estimated GFR (MDRD) > 60 > 60 (>60) Glucose 333 H 341 H (74-106) mg/dL Calcium 8.7 8.8 (8.5-10.1) mg/dL Total Bilirubin 0.6 (0.2-1.0) mg/dL AST 17 (15-37) U/L ALT 27 (12-78) U/L Alkaline Phosphatase 70 (46-116) U/L Total Protein 6.8 (6.4-8.2) g/dL Albumin 3.2 L (3.4-5.0) g/dL Globulin 3.6 H (2.3-3.5) g/dL Albumin/Globulin Ratio 0.9 L (1.2-2.2) Meds: Medications Generic Name Dose Route Start Last Admin Trade Name Freq PRN Reason Stop Dose Admin Sodium Chloride 74 mls @ 3 mls/sec 11/09/19 06:15 11/09/19 06:36 Normal Saline IV 3 mls/sec ASDIRECTED KILLIAN Administration Sodium Chloride 10 ml 11/09/19 05:55 Saline Flush FLUSH ASDIRECTED PRN Keep Vein Open Discontinued Medications Generic Name Dose Route Start Last Admin Trade Name Freq PRN Reason Stop Dose Admin Clonidine HCl 0.1 mg 11/09/19 08:54 Catapres PO 11/09/19 08:55 ONETIME ONE Hydralazine HCl 10 mg 11/09/19 05:55 11/09/19 06:12 Apresoline IVPUSH 11/09/19 05:56 10 mg ONETIME ONE Administration Hydromorphone HCl 0.5 mg 11/09/19 05:55 11/09/19 06:12 Dilaudid IVPUSH 11/09/19 05:56 0.5 mg ONETIME ONE Administration Iopamidol 87 ml 11/09/19 06:11 11/09/19 06:37 Isovue-300 (61%) IV 11/09/19 06:12 87 ml ONETIME ONE Administration - Radiology Interpretation Free Text/Narrative:: CT abd/pelvis with IV contrast- Departure - Departure Disposition: Admitted As Inpatient 65 Clinical Impression: Hyperglycemia, Uncontrolled hypertension, Sigmoid thickening - Discharge Information Referrals: Nichole Coates PA-C [Primary Care Provider] - Forms: ED Department Discharge Sepsis Event Note - Evaluation Sepsis Screening Result: No Definite Risk - Focused Exam Vital Signs: Vital Signs Temp Pulse Resp BP Pulse Ox 11/09/19 05:39 97 F 67 14 215/79 H 100 Date Exam was Performed: 11/09/19 Time Exam was Performed: 06:13 <OfficerLars - Last Filed: 11/09/19 08:58> Departure - Departure Time of Disposition: 08:57 Condition: Fair Sepsis Event Note - Focused Exam Date Exam was Performed: 11/09/19 Time Exam was Performed: 08:55 - Assessment/Plan Plan: Assessment Acuity = acute Site and laterality = thickening distal sigmoid with change in bowel habits, uncontrolled hypertension, uncontrolled diabetes mellitus type 2 Etiology = concern for neoplasm in the distal sigmoid, unclear etiology for hypertension, medication compliance with a diabetes mellitus type 2 Manifestations = lightheadedness with elevated blood pressure Location of injury = Home Lab values = CBC, CMP unremarkable CT scan of the abdomen does describe the thickened distal sigmoid Plan Call discussed case with hospitalist on-call at 840 he kindly agreed to come and evaluate the patient in the emergency department for admission evaluation of blood pressure blood sugar and concern about neoplasm in the colon This note was dictated using [employer] voice recognition software please call with any questions on syntax or grammar.
[2019-11-09] MEDS ORDERED: Iopamidol 612 MG/ML 500 ML Multipack Bottle IV ONE (06:11)
--- NOTE | 2019-11-09 07:09 | CRLCT ---
INDICATION: Pain. TECHNIQUE: CT abdomen and pelvis acquired with 87 cc Isovue-300 IV contrast. COMPARISON: February 08, 2017. FINDINGS: Lower chest: Unremarkable. Liver: Unremarkable. Normal in size and attenuation. No masses. Gallbladder and bile ducts: Unremarkable. No stones or inflammation. No biliary dilatation. Pancreas: Unremarkable. No mass or inflammation. Spleen: Unremarkable. Normal in size. No masses. Adrenal glands: Unremarkable. No nodules. Kidneys: Unremarkable. No masses, stones, or hydronephrosis. GI tract: A narrowed segment of distal sigmoid colon measures 3.2 cm in length as demonstrated on series 2, image 108. Minimal distal diverticulosis. Remainder of the GI tract is within normal limits in caliber and appearance. Appendix is not visualized and may be absent. No signs of appendicitis. Vasculature: Unremarkable. Mesenteric arteries are patent. Lymph nodes: No lymphadenopathy. Omentum/Peritoneum/Abdominal Wall: Unremarkable. No sign of mass or infiltration. No free air or significant free fluid. Pelvis: Unremarkable. Bones: There is moderate multilevel degenerative disc spondylosis with small posterior disc protrusions in the lumbar spine. No fracture or other acute abnormality. IMPRESSION: 1. A 3.2 cm segment of distal sigmoid colon appears narrowed. This could represent a neoplasm or normal peristalsis. Direct visualization with colonoscopy or repeat CT with rectal contrast is recommended for further evaluation. 2. Multilevel degenerative disc spondylosis in the lumbar spine. No acute fracture evident. 3. No other acute or significant finding present. Dictated by Lewis Veloz MD @ 11/09/2019 7:08:25 AM Please note that all CT scans at this facility use dose modulation, iterative reconstruction, and/or weight-based dosing when appropriate to reduce radiation dose to as low as reasonably achievable. Dictated by: Lewis Veloz MD @ 11/09/2019 07:08:32 (Electronically Signed)
[2019-11-09] MEDS ORDERED: cloNIDine 0.1 MG Tab PO ONE (08:54)
--- NOTE | 2019-11-09 09:16 | PCM.HP.2 ---
H&P History of Present Illness - General Date of Service: 11/09/19 Admit Problem/Dx: Admission Diagnosis/Problem Admission Diagnosis/Problem Hypertension Source of Information: Patient, Old Records, Provider, RN Notes Reviewed History Limitations: Reports: No Limitations - History of Present Illness Initial Comments - Free Text/Narative: Ms. Guillen is a 74-year-old woman who was admitted through the emergency department for further evaluation and management of abdominal pain, uncontrolled hypertension, and uncontrolled type 2 diabetes mellitus. She has not felt well for some time, recently has felt more weak and has been found to have uncontrolled hypertension with systolic pressures above 200 and diastolic pressures above 110. She has had longstanding history of hypertension and blood pressures have been stable on current medications until recently. She denies any episodes of lightheadedness or more profound weakness. She has been to the emergency department several times over the last few days with elevated blood pressures and symptoms of weakness. She is also developed vague abdominal discomfort as well as low back pain. On presentation earlier this morning blood pressure was significantly elevated. CT scan of the abdomen pelvis shows evidence of a possible colon mass, which might explain some of her recent abdominal symptoms. Lower Back Pain Score (Numeric/FACES): 10 - Related Data Allergies/Adverse Reactions: Allergies Allergy/AdvReac Type Severity Reaction Status Date / Time amoxicillin [Amoxicillin] Allergy Rash Verified 11/05/19 14:09 erythromycin base Allergy Rash Verified 11/05/19 14:09 [Erythromycin Base] glyburide Allergy Rash Verified 11/05/19 14:09 metformin Allergy Rash Verified 11/05/19 14:09 nabumetone Allergy Rash Verified 11/05/19 14:09 Home Medications: Home Meds Aspirin [Children's Aspirin] 81 mg PO DAILY 06/29/13 [History] Vitamin E 400 unit PO DAILY 06/29/13 [History] atenoloL [Atenolol] 50 mg PO DAILY 06/29/13 [History] Ibuprofen [Ibu] 600 mg PO Q6HR PRN 07/11/19 [History] Losartan Potassium 100 mg PO DAILY 11/09/19 [History] Past Medical History HEENT History: Reports: Impaired Vision Cardiovascular History: Reports: Hypertension Respiratory History: Reports: None Gastrointestinal History: Reports: None Genitourinary History: Reports: Renal Calculus LIAISON PLANNER History: Reports: Dysfunctional 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 right hip pain Neurological History: Reports: Migraines Psychiatric History: Reports: Anxiety Endocrine/Metabolic History: Reports: Diabetes, Type II Hematologic History: Reports: None Immunologic History: Reports: None Oncologic (Cancer) History: Reports: None Dermatologic History: Reports: None - Infectious Disease History Infectious Disease History: Reports: Chicken Pox - Past Surgical History Head Surgeries/Procedures: Reports: None HEENT Surgical History: Reports: Adenoidectomy, Tonsillectomy GI Surgical History: Reports: Appendectomy Female Surgical History: Reports: Ureteral Stent Musculoskeletal Surgical History: Reports: None Dermatological Surgical History: Reports: None Social & Family History - Tobacco Use Smoking Status *Q: Never Smoker - Caffeine Use Caffeine Use: Reports: None - Recreational Drug Use Recreational Drug Use: No H&P Review of Systems - Review of Systems: Review Of Systems: See Below General: Reports: Weakness, Decreased Appetite. Denies: Fever, Chills HEENT: Reports: No Symptoms Pulmonary: Reports: No Symptoms Cardiovascular: Reports: No Symptoms Gastrointestinal: Reports: Abdominal Pain, Distension, Nausea. Denies: Constipation, Diarrhea, Difficulty Swallowing, Hematemesis, Hematochezia, Melena , Vomiting Genitourinary: Reports: No Symptoms Musculoskeletal: Reports: No Symptoms Skin: Reports: No Symptoms Psychiatric: Reports: No Symptoms Neurological: Reports: No Symptoms Hematologic/Lymphatic: Reports: No Symptoms Immunologic: Reports: No Symptoms Exam - Exam Exam: See Below - Vital Signs Vital Signs: Last Vital Signs Temp 97 F 11/09/19 05:39 Pulse 67 11/09/19 09:04 Resp 12 11/09/19 09:04 BP 212/76 H 11/09/19 09:04 Pulse Ox 100 11/09/19 09:04 Weight: 126 lb - Exam Quality Assessment: DVT Prophylaxis General: Alert, Oriented, Cooperative, Mild Distress HEENT: Conjunctiva Clear, Hearing Intact, Mucosa Moist & Louann, Normal Nasal Septum, Posterior Pharynx Clear, Pupils Equal Neck: Supple, Trachea Midline, +2 Carotid Pulse wo Bruit Lungs: Clear to Auscultation, Normal Respiratory Effort Cardiovascular: Regular Rate, Regular Rhythm, Normal S1, Normal S2. No: Systolic Murmur, Diastolic Murmur GI/Abdominal Exam: Soft, Non-Tender, No Organomegaly, No Distention Back Exam: Normal Inspection, Full Range of Motion Extremities: Non-Tender, No Pedal Edema Skin: Warm, Dry, Intact Neurological: Cranial Nerves Intact, Strength Equal Bilateral, Normal Speech, Normal Tone, Sensation Intact. No: Focal Deficit Neuro Extensive - Mental Status: Alert, Oriented x3, Normal Mood/Affect, Normal Cognition, Memory Intact - Patient Data Lab Results Last 24 hrs: Laboratory Results - last 24 hr 11/09/19 11/09/19 11/09/19 Range/Units 06:10 06:10 07:11 ESR 16 (0-25) mm/hr Sodium 136 L 136 L (140-148) mmol/L Potassium 3.5 L 3.5 L (3.6-5.2) mmol/L Chloride 98 L 98 L (100-108) mmol/L Carbon Dioxide 30 29 (21-32) mmol/L Anion Gap 11.5 12.5 (5.0-14.0) mmol/L BUN 15 15 (7-18) mg/dL Creatinine 0.7 0.8 (0.6-1.0) mg/dL Est Cr Clr Drug Dosing 54.92 48.06 mL/min Estimated GFR (MDRD) > 60 > 60 (>60) Glucose 333 H 341 H (74-106) mg/dL Calcium 8.7 8.8 (8.5-10.1) mg/dL Total Bilirubin 0.6 (0.2-1.0) mg/dL AST 17 (15-37) U/L ALT 27 (12-78) U/L Alkaline Phosphatase 70 (46-116) U/L Total Protein 6.8 (6.4-8.2) g/dL Albumin 3.2 L (3.4-5.0) g/dL Globulin 3.6 H (2.3-3.5) g/dL Albumin/Globulin Ratio 0.9 L (1.2-2.2) Urine Color (YELLOW) Urine Appearance (CLEAR) Urine pH (5.0-8.0) Ur Specific [place] (1.008-1.030) Urine Protein (NEGATIVE) mg/dL Urine Glucose (UA) (NEGATIVE) mg/dL Urine Ketones (NEGATIVE) mg/dL Urine Occult Blood (NEGATIVE) Urine Nitrite (NEGATIVE) Urine Bilirubin (NEGATIVE) Urine Urobilinogen (0.2-1.0) EU/dL Ur Leukocyte Esterase (NEGATIVE) Urine RBC (0-5) Urine WBC (0-5) Ur Epithelial Cells Urine Bacteria Urine Other 11/09/19 Range/Units 08:44 ESR (0-25) mm/hr Sodium (140-148) mmol/L Potassium (3.6-5.2) mmol/L Chloride (100-108) mmol/L Carbon Dioxide (21-32) mmol/L Anion Gap (5.0-14.0) mmol/L BUN (7-18) mg/dL Creatinine (0.6-1.0) mg/dL Est Cr Clr Drug Dosing mL/min Estimated GFR (MDRD) (>60) Glucose (74-106) mg/dL Calcium (8.5-10.1) mg/dL Total Bilirubin (0.2-1.0) mg/dL AST (15-37) U/L ALT (12-78) U/L Alkaline Phosphatase (46-116) U/L Total Protein (6.4-8.2) g/dL Albumin (3.4-5.0) g/dL Globulin (2.3-3.5) g/dL Albumin/Globulin Ratio (1.2-2.2) Urine Color Yellow (YELLOW) Urine Appearance Slightly cloudy A (CLEAR) Urine pH 6.0 (5.0-8.0) Ur Specific [place] 1.015 (1.008-1.030) Urine Protein 100 H (NEGATIVE) mg/dL Urine Glucose (UA) 500 H (NEGATIVE) mg/dL Urine Ketones 40 H (NEGATIVE) mg/dL Urine Occult Blood Trace-intact H (NEGATIVE) Urine Nitrite Negative (NEGATIVE) Urine Bilirubin Negative (NEGATIVE) Urine Urobilinogen 0.2 (0.2-1.0) EU/dL Ur Leukocyte Esterase Negative (NEGATIVE) Urine RBC 0-5 (0-5) Urine WBC >100 H (0-5) Ur Epithelial Cells Moderate Urine Bacteria Rare Urine Other See note Result Diagrams: 11/09/19 07:11 Sepsis Event Note - Evaluation Sepsis Screening Result: No Definite Risk - Focused Exam Vital Signs: Vital Signs Temp Pulse Resp BP Pulse Ox 11/09/19 09:04 67 12 212/76 H 100 11/09/19 08:15 63 202/71 H 11/09/19 05:39 97 F 67 14 215/79 H 100 Date Exam was Performed: 11/09/19 Time Exam was Performed: 15:23 *Q Meaningful Use (ADM) - VTE Risk Assess *Q Each Risk Factor Represents 1 Point: None Total Score 1 Point Risk Factors: 0 Each Risk Factor Represents 2 Points: None Total Score 2 Point Risk Factors: 0 Each Risk Factor Represents 3 Points: Age 75 Years or Greater Total Score 3 Point Risk Factors: 3 Each Risk Factor Represents 5 Points: None Total Score 5 Point Risk Factors: 0 Venous Thromboembolism Risk Factor Score *Q: 3 Problem List Initiated/Reviewed/Updated: Yes Orders Last 24hrs: Active Orders 24 hr Category Date Time Status Patient Status Manage Transfer [TRANSFER] Routine ADT 11/09/19 08:56 Active Sodium Chloride 0.9% [Normal Saline] 74 ml Med 11/09/19 06:15 Active IV ASDIRECTED Sodium Chloride 0.9% [Saline Flush] Med 11/09/19 05:55 Active 10 ml FLUSH ASDIRECTED PRN Saline Lock Insert [OM.PC] Routine Oth 11/09/19 05:55 Ordered Resuscitation Status Routine Resus Stat 11/09/19 08:58 Ordered Medication Orders Sodium Chloride (Normal Saline) 74 mls @ 3 mls/sec IV ASDIRECTED KILLIAN Last Admin: 11/09/19 06:36 Dose: 3 mls/sec Sodium Chloride (Saline Flush) 10 ml FLUSH ASDIRECTED PRN PRN Reason: Keep Vein Open Last Admin: 11/09/19 09:03 Dose: 10 ml Assessment/Plan Comment:: ASSESSMENT AND PLAN POSSIBLE COLON MASS-CT scan shows narrowing in the colon consistent with a possible mass -Colonoscopy prep -IV fluids for hydration -N.p.o. after midnight -Consult Dr. Stacy for colonoscopy in a.m. UNCONTROLLED HYPERTENSION-recent emergency room visits with elevated blood pressures, not yet under control. -Evaluate for secondary causes with 24-hour urine for catecholamines, metanephrines, and aldosterone -Hydralazine 10 mg p.o. every 6 hours -Continue outpatient antihypertensive therapy UNCONTROLLED TYPE 2 DIABETES MELLITUS-she reports history of intolerance or allergic reaction to insulin as well as metformin and glipizide. Reaction to insulin apparently involved loss of consciousness secondary to hypoglycemia. She denies any other specific reaction to insulin. We discussed this and I did explain to her that it was likely the dose that caused the hypoglycemia rather than a reaction to insulin itself. She is agreeable to trying insulin therapy again. -4 times daily glucometers -Low-dose sliding scale Humalog -Consider addition of long-acting insulin HYPOKALEMIA -Oral potassium replacement -Reassess potassium level in a.m. MAINTENANCE ISSUES -DVT prophylaxis; SCUDs, hold on anticoagulation because of colonoscopy -GI prophylaxis; not indicated -[place] catheter; not indicated -Nutrition; clear liquid diet, n.p.o. after midnight -Nicotine dependence; not required CODE STATUS-FULL CODE ADMISSION STATUS-this patient will be admitted to observation status, expect no more than a one night hospital stay for evaluation and management of problems as outlined above. DISPOSITION-anticipate discharge to home after the hospital stay. PRIMARY CARE PROVIDER-Radha Coates - Mortality Measure Prognosis:: Good
[2019-11-09] MEDS ORDERED: Ondansetron 4 MG/2 ML SDV IVPUSH ONE (09:51)
[2019-11-09] MEDS ORDERED: 50% Dextrose in Water 50 ML Syringe IV PRN (10:52)
[2019-11-09] MEDS ORDERED: Ondansetron 4 MG/2 ML SDV IV PRN (10:52)
[2019-11-09] MEDS ORDERED: Glucose Gel 15 GM in 37.5 GM Tube PO PRN (10:52)
[2019-11-09] MEDS ORDERED: Acetaminophen 325 MG Tab PO PRN (10:52)
[2019-11-09] MEDS ORDERED: Non-Formulary Medication 1 Each (Atenolol [Atenolol] 50 MG) PO SCH (10:52)
[2019-11-09] MEDS ORDERED: Bisacodyl 5 MG Tab PO ONE ×2 (11:00→20:00)
[2019-11-09] MEDS: hydrALAZINE 10 MG Tab PO SCH ×2 (12:36→18:07)
[2019-11-09] MEDS ORDERED: Potassium Chloride 20 MEQ Tab.ER PO ONE (15:15)
[2019-11-09] MEDS ORDERED: hydrALAZINE 10 MG Tab PO SCH (16:00)
[2019-11-09] MEDS ORDERED: Polyethylene Glycol 3350 Powder 238 GM Bot PO ONE (17:00)
[2019-11-09] MEDS: Insulin Lispro 100 Unit/ML 3 ML KwikPen SUBCUT SCH ×2 (17:19→21:08)
[2019-11-10] MEDS: hydrALAZINE 10 MG Tab PO SCH ×3 (00:01→13:01)
[2019-11-10] MEDS: Sodium Chloride 0.9% 1,000 ML IV SCH ×2 (00:01→07:52)
[2019-11-10] MEDS ORDERED: Propofol 200 MG/20 ML SDV ONE (08:22)
[2019-11-10] MEDS ORDERED: fentaNYL 100 MCG/2 ML SDV ONE (08:22)
[2019-11-10] MEDS ORDERED: Aspirin 81 MG Tab.Chew PO SCH (09:00)
[2019-11-10] MEDS ORDERED: Losartan 50 MG Tab**POM PO SCH (09:00)
[2019-11-10] MEDS ORDERED: ATENOLOL 50 MG PO SCH (09:00)
[2019-11-10] MEDS: Insulin Lispro 100 Unit/ML 3 ML KwikPen SUBCUT SCH ×2 (09:17→12:58)
[2019-11-10] MEDS ORDERED: Potassium Chloride 20 MEQ Tab.ER PO ONE (09:30)
[2019-11-10] MEDS ORDERED: Insulin Glargine,Human Rec. Analog 100 Units/ML 3 ML Pen SUBCUT SCH (13:00)
[2019-11-10 13:09] VITALS: BP 165/53; PULSE 72
--- NOTE | 2019-11-10 13:21 | PCM.DCSUM1 ---
Discharge Summary - Hospital Course Brief History: Ms. Guillen is a 74-year-old woman who was admitted through the emergency department to observation status for further evaluation of possible colon mass and management of uncontrolled hypertension and hyperglycemia. - Discharge Data Discharge Date: 11/10/19 Discharge Disposition: Home, W Home Health Agency 06 Condition: Fair - Referral to Home Health Date of Face to Face Encounter: 11/10/19 Reason for Homebound Status: Generalized weakness Primary Care Physician: Nichole Coates PA-C Skilled Need: Nursing follow-up to assure that she is taking medications and insulin correctly. - Discharge Diagnosis/Problem(s) (1) Type 2 diabetes mellitus SNOMED Code(s): 22260902 ICD Code: E11.9 - TYPE 2 DIABETES MELLITUS WITHOUT COMPLICATIONS Status: Acute Current Visit: Yes (2) Abdominal pain SNOMED Code(s): 77873883 ICD Code: R10.9 - UNSPECIFIED ABDOMINAL PAIN Status: Acute Current Visit : Yes (3) Hyperglycemia SNOMED Code(s): 11073688 ICD Code: R73.9 - HYPERGLYCEMIA, UNSPECIFIED Status: Acute Current Visit : Yes (4) Uncontrolled hypertension SNOMED Code(s): 20558655, 93430655 ICD Code: I10 - ESSENTIAL (PRIMARY) HYPERTENSION Status: Acute Current Visit: Yes - Patient Summary/Data Consults: Consultations 11/09/19 10:52 Consult to Physician [CONS] Routine Consulting Provider: Migue Stacy Call Completed to Consulting Physician: Yes Reason for Consult: Possible colon mass, colonoscopy in am Hospital Course: Ms. Guillen is a 74-year-old woman who was admitted through the emergency department for further evaluation and management of abdominal pain, uncontrolled hypertension, and uncontrolled type 2 diabetes mellitus. She has not felt well for some time, recently has felt more weak and has been found to have uncontrolled hypertension with systolic pressures above 200 and diastolic pressures above 110. She has had longstanding history of hypertension and blood pressures have been stable on current medications until recently. She denies any episodes of lightheadedness or more profound weakness. She has been to the emergency department several times over the last few days with elevated blood pressures and symptoms of weakness. She is also developed vague abdominal discomfort as well as low back pain. On presentation earlier this morning blood pressure was significantly elevated. CT scan of the abdomen pelvis shows evidence of a possible colon mass, which might explain some of her recent abdominal symptoms. On admission she was started on hydralazine 10 mg every 6 hours for management of her uncontrolled hypertension. Use of this medication did result in better blood pressure control, although blood pressures remain elevated above desired range they are not severely elevated as they had been on admission. I did have a discussion with her concerning her diabetes management, she reports intolerance or allergy to glipizide, metformin , and insulin. After further review and discussion she reported that insulin had caused loss of consciousness secondary to hypoglycemia. I did explain to her that it was likely the dose of insulin not the insulin itself that caused this big problem for her and she did agree to retry insulin. Initially she was started on low-dose sliding scale Humalog and at the time of discharge will be on Lantus 12 units subcu daily. Follow-up appointment will be scheduled clinical systems educator. Because of her difficult to control hypertension 24-hour urine studies were ordered for aldosterone, metanephrines, and catecholamines. These will be collected after discharge and should be followed up by her primary care provider. On the day after admission she was seen and evaluated by Dr. Stacy to evaluate possible mass noted on CT scan. Colonoscopy was performed and showed no evidence of any mass or unusual finding in the colon. She was feeling better on the day of discharge and will be discharged home with home care follow-up to help assure that she is taking her medications and insulin correctly. Activity will be as tolerated and she will be on a low- sodium consistent carbohydrate diet. Follow-up appointment will be scheduled with her primary care provider within 1 week and a follow-up BMP will be obtained at that time. - Patient Instructions Diet: Low Sodium, Diabetic Diet Activity: As Tolerated Other/Special Instructions: Please schedule follow-up appointment with primary care provider within 1 week. BMP should be obtained at the time of follow-up appointment. Please arrange for home care follow-up after discharge from the hospital. Please schedule follow-up appointment with clinical systems educator for assistance in ongoing management of type 2 diabetes mellitus. - Discharge Plan *PRESCRIPTION DRUG MONITORING PROGRAM REVIEWED*: Not Applicable *COPY OF PRESCRIPTION DRUG MONITORING REPORT IN PATIENT IDRIS: Not Applicable Prescriptions/Med Rec: hydrALAZINE [Apresoline] 10 mg PO Q6H #120 tablet Insulin Glarg,Human.Rec.Analog [Lantus Solostar] 12 units SUBCUT DAILY #2 pen Home Medications: Home Meds Aspirin 81 mg PO DAILY 06/29/13 [History] Vitamin E 400 unit PO DAILY 06/29/13 [History] atenoloL [Atenolol] 50 mg PO DAILY 06/29/13 [History] Losartan Potassium 100 mg PO DAILY 11/09/19 [History] Insulin Glarg,Human.Rec.Analog [Lantus Solostar] 12 units SUBCUT DAILY #2 pen [Rx] hydrALAZINE [Apresoline] 10 mg PO Q6H #120 tablet 11/10/19 [Rx] Referrals: Nichole Coates PA-C [Primary Care Provider] - 11/18/19 2:30 pm (Arrive 15 minutes early to register for your appointment.) - Discharge Summary/Plan Comment DC Time >30 min.: No - Patient Data Vitals - Most Recent: Last Vital Signs Temp 97.1 F 11/10/19 13:08 Pulse 72 11/10/19 13:08 Resp 18 11/10/19 13:08 BP 165/53 H 11/10/19 13:08 Pulse Ox 100 11/10/19 13:08 Weight - Most Recent: 126 lb I&O - Last 24 hours: Intake & Output 11/09/19 11/10/19 11/10/19 22:59 06:59 14:59 Intake Total 761 1059 Output Total 300 250 Balance 461 809 Lab Results - Last 24 hrs: Laboratory Results - last 24 hr 11/10/19 11/10/19 Range/Units 04:20 04:20 WBC 7.8 (4.5-11.0) K/uL RBC 4.52 (3.30-5.50) M/uL Hgb 12.6 (12.0-15.0) g/dL Hct 39.0 (36.0-48.0) % MCV 86 (80-98) fL MCH 28 (27-31) pg MCHC 32 (32-36) % Plt Count 268 (150-400) K/uL Neut % (Auto) 70 H (36-66) % Lymph % (Auto) 20 L (24-44) % [place] % (Auto) 9 H (2-6) % Eos % (Auto) 1 L (2-4) % Baso % (Auto) 0 (0-1) % Sodium 136 L (140-148) mmol/L Potassium 3.2 L (3.6-5.2) mmol/L Chloride 100 (100-108) mmol/L Carbon Dioxide 25 (21-32) mmol/L Anion Gap 14.2 H (5.0-14.0) mmol/L BUN 14 (7-18) mg/dL Creatinine 0.7 (0.6-1.0) mg/dL Est Cr Clr Drug Dosing 54.92 mL/min Estimated GFR (MDRD) > 60 (>60) Glucose 277 H (74-106) mg/dL Calcium 8.6 (8.5-10.1) mg/dL Med Orders - Current: Current Medications Acetaminophen (Tylenol) 650 mg PO Q4H PRN PRN Reason: Pain (Mild 1-3)/fever Last Admin: 11/09/19 15:50 Dose: 650 mg Aspirin (Aspirin) 81 mg PO DAILY [facility] Last Admin: 11/10/19 09:16 Dose: 81 mg Dextrose (Glutose 15) 15 gm PO ASDIRECTED PRN PRN Reason: Hypoglycemia Dextrose/Water (Dextrose 50% In Water) 50 ml IV ASDIRECTED PRN PRN Reason: Hypoglycemia Hydralazine HCl (Apresoline) 10 mg PO Q6H [facility] Last Admin: 11/10/19 13:01 Dose: 10 mg Insulin Glargine (Lantus Solostar) 12 units SUBCUT DAILY [facility] Last Admin: 11/10/19 12:58 Dose: 12 units Insulin Human Lispro (Humalog) 0 unit SUBCUT QIDACANDBED [facility]; Protocol Last Admin: 11/10/19 12:58 Dose: 2 units Losartan Potassium (Cozaar) 0 mg PO DAILY [facility] Last Admin: 11/10/19 09:16 Dose: 50 mg Ondansetron HCl (Zofran) 4 mg IV Q4H PRN PRN Reason: Nausea/Vomiting Last Admin: 11/09/19 17:44 Dose: 4 mg Atenolol 50mgPom 0 each PO DAILY [facility] Last Admin: 11/10/19 09:16 Dose: 1 each Sodium Chloride (Saline Flush) 10 ml FLUSH ASDIRECTED PRN PRN Reason: Keep Vein Open Discontinued Medications Bisacodyl (Dulcolax) 10 mg PO ONETIME ONE Stop: 11/09/19 11:01 Last Admin: 11/09/19 12:35 Dose: 10 mg Bisacodyl (Dulcolax) 10 mg PO ONETIME ONE Stop: 11/09/19 20:01 Last Admin: 11/09/19 21:01 Dose: 10 mg Clonidine HCl (Catapres) 0.1 mg PO ONETIME ONE Stop: 11/09/19 08:55 Last Admin: 11/09/19 17:40 Dose: Not Given Hydralazine HCl (Apresoline) 10 mg IVPUSH ONETIME ONE Stop: 11/09/19 05:56 Last Admin: 11/09/19 06:12 Dose: 10 mg Hydralazine HCl (Apresoline) 10 mg IVPUSH ONETIME ONE Stop: 11/09/19 08:56 Last Admin: 11/09/19 09:01 Dose: 10 mg Hydromorphone HCl (Dilaudid) 0.5 mg IVPUSH ONETIME ONE Stop: 11/09/19 05:56 Last Admin: 11/09/19 06:12 Dose: 0.5 mg Sodium Chloride (Normal Saline) 74 mls @ 3 mls/sec IV ASDIRECTED [facility] Last Admin: 11/09/19 06:36 Dose: 3 mls/sec Sodium Chloride (Normal Saline) 1,000 mls @ 125 mls/hr IV ASDIRECTED [facility] Last Admin: 11/10/19 07:52 Dose: 125 mls/hr Iopamidol (Isovue-300 (61%)) 87 ml IV ONETIME ONE Stop: 11/09/19 06:12 Last Admin: 11/09/19 06:37 Dose: 87 ml Ondansetron HCl (Zofran) 4 mg IVPUSH ONETIME ONE Stop: 11/09/19 09:52 Last Admin: 11/09/19 09:59 Dose: 4 mg Polyethylene Glycol (Miralax) 238 gm PO ONETIME ONE Stop: 11/09/19 17:01 Last Admin: 11/09/19 17:10 Dose: 238 gm Potassium Chloride (Klor-Con M20) 40 meq PO ONETIME ONE Stop: 11/09/19 15:16 Last Admin: 11/09/19 15:53 Dose: 40 meq Potassium Chloride (Klor-Con M20) 40 meq PO ONETIME ONE Stop: 11/10/19 09:31 Last Admin: 11/10/19 10:27 Dose: 40 meq Sodium Chloride (Saline Flush) 10 ml FLUSH ASDIRECTED PRN PRN Reason: Keep Vein Open Last Admin: 11/09/19 09:03 Dose: 10 ml - Exam General: Reports: Alert, Oriented, Cooperative, Mild Distress Lungs: Reports: Clear to Auscultation, Normal Respiratory Effort Cardiovascular: Reports: Regular Rate, Regular Rhythm, No Murmurs GI/Abdominal Exam: Soft, Non-Tender, No Organomegaly, No Distention Extremities: Non-Tender, No Pedal Edema *Q Meaningful Use (DIS) - VTE *Q VTE Pharmacological Contraindications *Q: Patient Scheduled Surgery
--- NOTE | 2019-11-10 14:48 | CONS ---
DATE OF SERVICE: 11/09/2019 REFERRING PHYSICIAN: CONSULTING PHYSICIAN: Migue Stacy MD REASON FOR CONSULTATION: Evaluation of colon findings. HISTORY OF PRESENT ILLNESS: A 74-year-old woman who is admitted to the emergency room with multiple issues including uncontrolled diabetes, hypertension, and abdominal pain. This has been an ongoing chronic issue. She has no nausea, vomiting, shortness of breath, or chest pain. PAST MEDICAL HISTORY: 1. History of uterine bleeding. 2. Type 2 diabetes, uncontrolled. 3. Hip pain. 4. Back pain. 5. Anxiety. 6. Migraines. 7. Appendectomy. SOCIAL HISTORY: She is not a smoker. FAMILY HISTORY: Noncontributory. REVIEW OF SYSTEMS: GENERAL: General malaise. HEENT: No changes. PULMONARY: No shortness of breath. CARDIOVASCULAR: No history of myocardial infarction. GASTROINTESTINAL: Nausea and abdominal pain as described above. No other symptoms. GENITOURINARY: History of ureteral stents. MUSCULOSKELETAL: No abnormality. SKIN: No abnormalities. PSYCHIATRIC: History of anxiety. NEUROLOGICAL: No changes. HEMATOLOGY: No abnormal bleeding history. Remainder review of systems are reviewed and is negative. PHYSICAL EXAMINATION: VITAL SIGNS: Normal except for hypertension. HEENT: Pupils are equal. NECK: Supple. LUNGS: Clear. CARDIOVASCULAR: Regular rhythm and rate. RESPIRATORY: Lungs are clear to auscultation bilaterally. ABDOMEN: Bowel sounds positive. EXTREMITIES: Full range of motion. Strength 5/5. NEUROLOGICAL: Alert and oriented x3. LABORATORY RESULTS: Show a normal white blood cell count, normal hemoglobin. IMAGING DATA: I did review the CT scan which shows possible abnormality in sigmoid colon. ASSESSMENT/PLAN: To the OR tomorrow morning for colonoscopy. We discussed risks, benefits, alternatives, and limitations including, but not limited to, infection, bleeding, and perforation were explained to the patient, who wished to proceed. Migue Stacy MD /[id number]
--- NOTE | 2019-11-11 12:23 | OR ---
DATE OF PROCEDURE: 11/10/2019 SURGEON: Migue Stacy MD PROCEDURE: Colonoscopy. FINDINGS: 1. Normal colonoscopy. 2. No evidence of masses, thickening, inflammation in the sigmoid colon. COMPLICATIONS: None. MODEL MAKER PLASTER: None. PREOPERATIVE DIAGNOSIS: Abdominal pain/concern for mass. POSTOPERATIVE DIAGNOSIS: Abdominal pain/concern for mass. RISKS: Risks, benefits, alternatives, and limitations including, but not limited to, infection, bleeding, and perforation were explained to the patient, who wished to proceed. PROCEDURE IN DETAIL: The patient was placed in the left lateral decubitus position. Digital rectal exam was performed without abnormality. Scope was introduced and advanced atraumatically to the ileocecal valve. A photo was taken. The scope was brought back through the ascending, transverse, descending colon, and retroflexed. The scope was then reintroduced and readvanced into the descending colon for verification. No abnormalities were noted. Multiple images were taken of this. The prep was moderately acceptable. However, no evidence of colitis, masses, old or new blood. The patient did have two diverticula. However, there was not any significant pathology associated with this. The patient tolerated the procedure well. Migue Stacy MD /[id number]
== END 2019-11-10 15:00 | disposition home health service (06) ==
LOC: JP.ED 05:11 → JP.MS 08:56
PROVIDERS: ADMIT Hospitalist; ATTEND Hospitalist
DX: K57.30 Diverticulosis of large intestine without perforation or abscess without bleeding (principal); E11.65 Type 2 diabetes mellitus with hyperglycemia; I10 Essential (primary) hypertension; R93.3 Abnormal findings on diagnostic imaging of other parts of digestive tract; E87.6 Hypokalemia; Z79.82 Long term (current) use of aspirin; Z79.4 Long term (current) use of insulin; Z79.899 Other long term (current) drug therapy; Z88.0 Allergy status to penicillin; Z88.1 Allergy status to other antibiotic agents; Z88.8 Allergy status to other drugs, medicaments and biological substances; Z90.49 Acquired absence of other specified parts of digestive tract
CPT/HCPCS: 36415; 45378; 74177; 80048; 80053; 81001; 82962; 85025; 85651; 96361; 96374; 96375; 96376; 99217; 99219; 99284; A9270; G0378; J0360; J1170; J1815; J2405; J2704; J3010; J7030; J7050; Q9967

== ENCOUNTER 2019-11-12 02:41 | Emergency (ER) | payer MEDICARE, BC ==
[2019-11-12] MEDS ORDERED: Labetalol 20 MG/4 ML Syringe IVPUSH ONE (03:21)
[2019-11-12] MEDS ORDERED: LORazepam 1 MG Tab PO ONE (03:22)
--- NOTE | 2019-11-12 03:27 | EDM.PDOC ---
ED HPI GENERAL MEDICAL PROBLEM - General Chief Complaint: Cardiovascular Problem Stated Complaint: HIGH BP Time Seen by Provider: 11/12/19 03:00 Source of Information: Reports: Patient, Family History Limitations: Reports: No Limitations - History of Present Illness INITIAL COMMENTS - FREE TEXT/NARRATIVE: 74-year-old female with persistent systolic hypertension, presents because her hip was hurting her tonight and she took her blood pressure and her systolic blood pressure was over 200. She became aware of her hypertension 3 days ago when she went to orthopedics and her systolic pressure was 230. She was evaluated in the emergency room, a significant work-up was done including the labs and CT the abdomen and pelvis and she was admitted and started on hydralazine. Her blood pressure partially responded to the medication, and she started a 48-hour urine collection which is going to be done tomorrow. Tonight her hip was bothering her again so she checked her blood pressure and again her systolic was around 220-230 so she came in. She has no significant chest pain, shortness of breath, headache, dizziness or other symptoms. Onset: Unknown/Unsure (Hypertension has likely been present for weeks to months) Associated Symptoms: Reports: Other (Intermittent back and hip pain for the past year or more) - Related Data Allergies Allergy/AdvReac Type Severity Reaction Status Date / Time amoxicillin [Amoxicillin] Allergy Rash Verified 11/05/19 14:09 erythromycin base Allergy Rash Verified 11/05/19 14:09 [Erythromycin Base] glyburide Allergy Rash Verified 11/05/19 14:09 metformin Allergy Rash Verified 11/05/19 14:09 nabumetone Allergy Rash Verified 11/05/19 14:09 Home Meds: Home Meds Aspirin 81 mg PO DAILY 06/29/13 [History] Vitamin E 400 unit PO DAILY 06/29/13 [History] atenoloL [Atenolol] 50 mg PO DAILY 06/29/13 [History] Losartan Potassium 100 mg PO DAILY 11/09/19 [History] Insulin Glarg,Human.Rec.Analog [Lantus Solostar] 12 units SUBCUT DAILY #2 pen [Rx] hydrALAZINE [Apresoline] 10 mg PO Q6H #120 tablet 11/10/19 [Rx] Past Medical History HEENT History: Reports: Impaired Vision Cardiovascular History: Reports: Hypertension Respiratory History: Reports: None Gastrointestinal History: Reports: None Genitourinary History: Reports: Renal Calculus 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 right hip pain Neurological History: Reports: Migraines Psychiatric History: Reports: Anxiety Endocrine/Metabolic History: Reports: Diabetes, Type II Hematologic History: Reports: None Immunologic History: Reports: None Oncologic (Cancer) History: Reports: None Dermatologic History: Reports: None - Infectious Disease History Infectious Disease History: Reports: Chicken Pox - Past Surgical History Head Surgeries/Procedures: Reports: None HEENT Surgical History: Reports: Adenoidectomy, Tonsillectomy GI Surgical History: Reports: Appendectomy Female Surgical History: Reports: Ureteral Stent Musculoskeletal Surgical History: Reports: None Dermatological Surgical History: Reports: None Social & Family History - Family History Family Medical History: Noncontributory - Tobacco Use Smoking Status *Q: Never Smoker - Caffeine Use Caffeine Use: Reports: None ED ROS GENERAL - Review of Systems Review Of Systems: See Below Constitutional: Denies: Fever, Chills HEENT: Reports: No Symptoms Respiratory: Denies: Shortness of Breath Cardiovascular: Reports: Chest Pain (Intermittent mild chest discomfort, none currently) GI/Abdominal: Denies: Nausea, Vomiting Musculoskeletal: Reports: Back Pain, Other (Right hip discomfort) Skin: Reports: No Symptoms Psychiatric: Reports: Anxiety ED EXAM, GENERAL - Physical Exam Exam: See Below Exam Limited By: No Limitations General Appearance: Alert, No Apparent Distress, Anxious Head: Atraumatic Respiratory/Chest: No Respiratory Distress, Lungs Clear Cardiovascular: Regular Rate, Rhythm GI/Abdominal: Non-Tender Extremities: No Pedal Edema Neurological: Alert, Oriented Psychiatric: Anxious Course - Vital Signs Last Recorded V/S: Last Vital Signs Temp 98.9 F 11/12/19 02:52 Pulse 84 11/12/19 03:32 Resp 16 11/12/19 03:32 BP 199/73 H 11/12/19 03:32 Pulse Ox 99 11/12/19 03:32 - Orders/Labs/Meds Meds: Medications Discontinued Medications Generic Name Dose Route Start Last Admin Trade Name Freq PRN Reason Stop Dose Admin Labetalol HCl 20 mg 11/12/19 03:21 11/12/19 03:26 Normodyne IVPUSH 11/12/19 03:22 20 mg NOW ONE Administration Protocol Lorazepam 1 mg 11/12/19 03:22 11/12/19 03:26 Ativan PO 11/12/19 03:23 1 mg ONETIME ONE Administration - Re-Assessments/Exams Free Text/Narrative Re-Assessment/Exam: 11/12/19 03:26 Reviewed her recent records, her colonoscopy was negative and his systolic blood pressure was only controlled to 180 190 with the hydralazine while in the hospital. She was given 20 mg of IV labetalol one time, and 1 mg of p.o. Ativan. She is going to return to the clinic tomorrow for recheck when she takes in her urine collection. Departure - Departure Time of Disposition: 03:49 Disposition: Home, Self-Care 01 Clinical Impression: Systolic hypertension Instructions: Hypertension, Adult, [id number] Referrals: Nichole Coates PA-C [Primary Care Provider] - Forms: ED Department Discharge Care Plan Goals: Continue your hydralazine and atenolol as directed, and recheck at the clinic in the next 1 to 2 days when you take in your urine collection. Sepsis Event Note - Evaluation Sepsis Screening Result: No Definite Risk - Focused Exam Date Exam was Performed: 11/12/19 Time Exam was Performed: 17:19
[2019-11-12 03:33] VITALS: BP 199/73; PULSE 84
== END 2019-11-12 03:49 | disposition home or self-care (01) ==
LOC: JP.ED 02:41
DX: I10 Essential (primary) hypertension (principal); E11.9 Type 2 diabetes mellitus without complications; Z88.1 Allergy status to other antibiotic agents; Z88.8 Allergy status to other drugs, medicaments and biological substances; Z79.82 Long term (current) use of aspirin; Z79.4 Long term (current) use of insulin; Z79.899 Other long term (current) drug therapy
CPT/HCPCS: 96374; 99283; A9270; J3490

== ENCOUNTER 2020-10-04 05:39 | Emergency (ER) | payer MEDICARE, BC ==
[2020-10-04 06:15] VITALS: PULSE 69
[2020-10-04 06:38] VITALS: BP 204/73
--- NOTE | 2020-10-04 06:51 | EDM.PDOC ---
ED HPI GENERAL MEDICAL PROBLEM - General Chief Complaint: Flank Pain Stated Complaint: LOWER BACK PAIN Time Seen by Provider: 10/04/20 06:40 Source of Information: Reports: Patient, Family History Limitations: Reports: No Limitations - History of Present Illness INITIAL COMMENTS - FREE TEXT/NARRATIVE: 75-year-old female with UTI symptoms on the right side for the last 2 days. She had some discomfort on the left side 1 week ago, her urine was positive and she was placed on cephalexin and responded. Now for the last 2 days she is developed some cramping and pain in the right flank radiating around to the lower abdomen with some urgency. She really does not have dysuria. No fevers or chills. Denies nausea or vomiting. Onset: Gradual Duration: Day(s): (Redeveloped over the last 3 days) Location: Reports: Other (Right flank around the right abdomen) Associated Symptoms: Reports: Other (Having difficulty sleeping due to the discomfort) Right Flank Pain Score (Numeric/FACES): 7 - Related Data Allergies Allergy/AdvReac Type Severity Reaction Status Date / Time amoxicillin [Amoxicillin] Allergy Rash Verified 10/04/20 05:45 erythromycin base Allergy Rash Verified 10/04/20 05:45 [Erythromycin Base] glyburide Allergy Rash Verified 10/04/20 05:45 metformin Allergy Rash Verified 10/04/20 05:45 nabumetone Allergy Rash Verified 10/04/20 05:45 Home Meds: Home Meds Aspirin 81 mg PO DAILY 06/29/13 [History] Vitamin E 400 unit PO DAILY 06/29/13 [History] atenoloL [Atenolol] 50 mg PO DAILY 06/29/13 [History] Losartan Potassium 100 mg PO DAILY 11/09/19 [History] amLODIPine [Norvasc] 10 mg PO BEDTIME 10/04/20 [History] Past Medical History HEENT History: Reports: Impaired Vision Cardiovascular History: Reports: Hypertension Respiratory History: Reports: None Gastrointestinal History: Reports: None Genitourinary History: Reports: 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 right hip pain. low back pain Neurological History: Reports: Migraines Psychiatric History: Reports: Anxiety Endocrine/Metabolic History: Reports: Diabetes, Type II Hematologic History: Reports: None Immunologic History: Reports: None Oncologic (Cancer) History: Reports: None Dermatologic History: Reports: None - Infectious Disease History Infectious Disease History: Reports: Chicken Pox - Past Surgical History Head Surgeries/Procedures: Reports: None HEENT Surgical History: Reports: Adenoidectomy, Tonsillectomy Cardiovascular Surgical History: Reports: None GI Surgical History: Reports: Appendectomy Endocrine Surgical History: Reports: None Neurological Surgical History: Reports: None Musculoskeletal Surgical History: Reports: None Dermatological Surgical History: Reports: None Social & Family History - Family History Family Medical History: No Pertinent Family History - Tobacco Use Tobacco Use Status *Q: Never Tobacco User Second Hand Smoke Exposure: No - Caffeine Use Caffeine Use: Reports: None - Recreational Drug Use Recreational Drug Use: No ED ROS GENERAL - Review of Systems Review Of Systems: See Below Constitutional: Reports: Malaise. Denies: Fever, Chills HEENT: Reports: No Symptoms Respiratory: Denies: Shortness of Breath Cardiovascular: Denies: Chest Pain GI/Abdominal: Denies: Nausea, Vomiting Skin: Reports: No Symptoms Neurological: Denies: Headache ED EXAM, RENAL/ - Physical Exam Exam: See Below Exam Limited By: No Limitations General Appearance: Alert, No Apparent Distress Head: Atraumatic Respiratory/Chest: No Respiratory Distress, Lungs Clear Cardiovascular: Regular Rate, Rhythm GI/Abdominal: Soft, Non-Tender, Other (The right abdomen is nontender to palpation) Back Exam: CVA Tenderness (R) (Some moderate right CVA tenderness) Neurological: Alert, Oriented Psychiatric: Normal Affect, Normal Mood Skin Exam: Warm, Dry Course - Vital Signs Last Recorded V/S: Last Vital Signs Temp 97.4 F 10/04/20 06:00 Pulse 69 10/04/20 06:00 Resp 18 10/04/20 06:00 BP 204/73 H 10/04/20 06:38 Pulse Ox 99 10/04/20 06:00 - Orders/Labs/Meds Orders: Active Orders 24 hr Category Date Time Status CULTURE URINE [RM] Stat Lab 10/04/20 06:16 Received Labs: Laboratory Tests 10/04/20 Range/Units 06:16 Urine Color Yellow (YELLOW) Urine Appearance Cloudy A (CLEAR) Urine pH 7.0 (5.0-8.0) Ur Specific [place] 1.025 (1.008-1.030) Urine Protein >=300 H (NEGATIVE) mg/dL Urine Glucose (UA) 250 H (NEGATIVE) mg/dL Urine Ketones Negative (NEGATIVE) mg/dL Urine Occult Blood Moderate H (NEGATIVE) Urine Nitrite Positive H (NEGATIVE) Urine Bilirubin Negative (NEGATIVE) Urine Urobilinogen 0.2 (0.2-1.0) EU/dL Ur Leukocyte Esterase Trace H (NEGATIVE) Urine RBC 0-5 (0-5) Urine WBC 40-50 H (0-5) Ur Epithelial Cells Few Amorphous Sediment Not seen Urine Bacteria Many Urine Mucus Not seen - Re-Assessments/Exams Free Text/Narrative Re-Assessment/Exam: 10/04/20 06:49 UA was done which shows significant abnormalities including many bacteria, WBCs, nitrate positive urine. A culture was obtained and she will be placed on Macrobid 100 mg twice daily for 7 full days. Return in the next 2 to 3 days if not improving, or return anytime if worsening. Departure - Departure Time of Disposition: 07:00 Disposition: Home, Self-Care 01 Clinical Impression: UTI, Urinary tract infectious disease - Discharge Information Instructions: Urinary Tract Infection, Adult Referrals: PCP,None [Primary Care Provider] - Forms: ED Department Discharge Care Plan Goals: Take antibiotic twice a day for a full 7 days. Consider rechecking in 3 to 4 days if not improving satisfactorily, or return sooner if worsening such as vomiting the medication, fever, or worsening pain Sepsis Event Note (ED) - Evaluation Sepsis Screening Result: No Definite Risk - Focused Exam Vital Signs: Vital Signs Temp Pulse Resp BP Pulse Ox 10/04/20 06:38 204/73 H 10/04/20 06:00 97.4 F 69 18 220/81 H 99 10/04/20 05:52 97.4 F 69 18 220/81 H 99 - My Orders Last 24 Hours: My Active Orders 10/04/20 06:16 CULTURE URINE [RM] Stat - Assessment/Plan Last 24 Hours: My Active Orders 10/04/20 06:16 CULTURE URINE [RM] Stat
== END 2020-10-04 06:59 | disposition home or self-care (01) ==
LOC: JP.ED 05:39
DX: N39.0 Urinary tract infection, site not specified (principal); I10 Essential (primary) hypertension; E11.9 Type 2 diabetes mellitus without complications; Z79.82 Long term (current) use of aspirin; Z79.899 Other long term (current) drug therapy; Z88.0 Allergy status to penicillin; Z88.8 Allergy status to other drugs, medicaments and biological substances; Z88.1 Allergy status to other antibiotic agents
CPT/HCPCS: 81001; 87086; 99284

== ENCOUNTER 2021-08-08 17:16 | Emergency (ER) | payer MEDICARE, BC ==
[2021-08-08] MEDS ORDERED: Sodium Chloride 0.9% 10 ML Syringe FLUSH PRN (18:17)
[2021-08-08] MEDS ORDERED: Nitroglycerin 0.4 MG Tab.SL SL STA (18:17)
[2021-08-08] MEDS ORDERED: Potassium Chloride 20 MEQ Tab.ER PO ONE (19:16)
[2021-08-08] MEDS ORDERED: Furosemide 40 MG/4 ML VIAL IVPUSH ONE (19:16)
[2021-08-08] MEDS ORDERED: Nitroglycerin 0.4 MG Tab.SL SL ONE (19:16)
[2021-08-08] MEDS ORDERED: Potassium Chloride 20 MEQ in Premix Bag 1 BAG IV ONE (19:16)
[2021-08-08 19:18] LABS: CORONAVIRUS COVID-19 NAA NEGATIVE (NEGATIVE)
[2021-08-09] MEDS ORDERED: Potassium Chloride 20 MEQ Tab.ER PO ONE ×2 (02:00→07:31)
[2021-08-09] MEDS ORDERED: Potassium Chloride 20 MEQ in Premix Bag 1 BAG IV ONE (02:00)
[2021-08-09] MEDS ORDERED: Ondansetron 4 MG Tab.DIS PO ONE (02:40)
[2021-08-09] MEDS ORDERED: amLODIPine 5 MG Tab PO ONE (02:40)
[2021-08-09] MEDS ORDERED: Atenolol 25 MG Tab PO ONE (06:36)
[2021-08-09] MEDS ORDERED: Losartan 50 MG Tab PO ONE (06:36)
[2021-08-09] MEDS ORDERED: Acetaminophen 500 MG Tab PO ONE (07:29)
[2021-08-09] MEDS ORDERED: Magnesium Sulfate/Water 2 GM in Premix Bag 1 BAG IV ONE (07:30)
[2021-08-09 09:17] VITALS: BP 175/42; PULSE 66
== END 2021-08-09 10:32 | disposition home or self-care (01) ==
LOC: JP.ED 17:16
DX: S39.012A Strain of muscle, fascia and tendon of lower back, initial encounter (principal); S80.01XA Contusion of right knee, initial encounter; I11.0 Hypertensive heart disease with heart failure; I50.9 Heart failure, unspecified; E11.21 Type 2 diabetes mellitus with diabetic nephropathy; E87.6 Hypokalemia; E88.09 Other disorders of plasma-protein metabolism, not elsewhere classified; Z88.0 Allergy status to penicillin; Z88.1 Allergy status to other antibiotic agents; Z88.8 Allergy status to other drugs, medicaments and biological substances; Z79.82 Long term (current) use of aspirin; Z79.899 Other long term (current) drug therapy; Z20.822 Contact with and (suspected) exposure to COVID-19; W19.XXXA Unspecified fall, initial encounter
CPT/HCPCS: 0241U; 36415; 71045; 80053; 81001; 83605; 83690; 83735; 83880; 84132; 84484; 85025; 87086; 93005; 96365; 96366; 96367; 96375; 96376; 99285; A9270; J1940; J3475; J3480; Q0162

== ENCOUNTER 2021-10-11 01:57 | Emergency (ER) | payer MEDICARE, BC ==
[2021-10-11] MEDS ORDERED: Ondansetron 4 MG/2 ML SDV ONE (02:48)
[2021-10-11] MEDS: Ondansetron 4 MG/2 ML SDV IVPUSH ONE ×2 (03:22)
[2021-10-11] MEDS ORDERED: Ketorolac 30 MG/ML SDV IVPUSH ONE (03:57)
[2021-10-11 05:35] VITALS: BP 181/69; PULSE 78
== END 2021-10-11 06:31 | disposition home or self-care (01) ==
LOC: JP.ED 01:57
DX: S32.010A Wedge compression fracture of first lumbar vertebra, initial encounter for closed fracture (principal); I10 Essential (primary) hypertension; E11.9 Type 2 diabetes mellitus without complications; Z88.0 Allergy status to penicillin; Z88.8 Allergy status to other drugs, medicaments and biological substances; Z88.1 Allergy status to other antibiotic agents; Z79.899 Other long term (current) drug therapy; W19.XXXA Unspecified fall, initial encounter
CPT/HCPCS: 36415; 70450; 72125; 72131; 73562-26-RT; 73562-RT; 80048; 82550; 85027; 96374; 96375; 99284; 99284-25; J1885; J2405

== ENCOUNTER 2021-11-04 18:24 | Inpatient (IN) | payer MEDICARE, BC ==
[2021-11-04 19:04] LABS: TROPONIN I HIGH SENSITIVITY 14.1 pg/mL (<=60.3)
[2021-11-04] MEDS ORDERED: Furosemide 40 MG/4 ML VIAL IVPUSH ONE (19:06)
[2021-11-04 19:29] LABS: CORONAVIRUS COVID-19 NAA NEGATIVE (NEGATIVE)
[2021-11-04] MEDS ORDERED: Morphine 2 MG/ML SYRINGE IVPUSH PRN (21:33)
[2021-11-04] MEDS ORDERED: Ibuprofen 800 MG Tab PO PRN (21:33)
[2021-11-04] MEDS ORDERED: LORazepam 2 MG/ML SDV IV PRN (21:33)
[2021-11-04] MEDS ORDERED: Ondansetron 4 MG Tab.DIS PO PRN (21:33)
[2021-11-04] MEDS ORDERED: Albuterol 0.083% 2.5 MG/3 ML Neb Soln NEB PRN (21:33)
[2021-11-04] MEDS ORDERED: Sodium Chloride 0.9% 10 ML Syringe FLUSH PRN (21:33)
[2021-11-04] MEDS ORDERED: Bisacodyl 5 MG Tab PO PRN (21:33)
[2021-11-04] MEDS ORDERED: Docusate Sodium 100 MG Cap PO PRN (21:33)
[2021-11-04] MEDS ORDERED: Codeine/guaiFENesin 10-100 MG/5 ML Syrup 5 ML Cup PO PRN (21:38)
[2021-11-04] MEDS ORDERED: Melatonin 3 MG Tab PO PRN (21:38)
[2021-11-04] MEDS: Lidocaine 5% 700 MG Patch TRDERM SCH (22:26)
[2021-11-04] MEDS: amLODIPine 5 MG Tab PO SCH (22:27)
[2021-11-04] MEDS ORDERED: Carvedilol 12.5 MG Tab PO SCH (23:02)
[2021-11-05] MEDS ORDERED: cefTRIAXone 1 GM in Sodium Chloride 0.9% 50 ML IV ONE (03:41)
[2021-11-05] MEDS ORDERED: Furosemide 20 MG Tab PO SCH (08:00)
[2021-11-05] MEDS ORDERED: Furosemide 40 MG/4 ML VIAL IVPUSH ONE ×2 (08:35→15:00)
[2021-11-05] MEDS: Pantoprazole 40 MG Tab.CR PO SCH (09:10)
[2021-11-05] MEDS: Carvedilol 12.5 MG Tab PO SCH ×2 (09:11→20:40)
[2021-11-05] MEDS: Losartan 50 MG Tab PO SCH (09:11)
[2021-11-05] MEDS: Isosorbide Mononitrate 30 MG Tab.ER PO SCH (09:12)
[2021-11-05] MEDS ORDERED: Benzonatate 100 MG Cap PO PRN (10:18)
[2021-11-05] MEDS ORDERED: Potassium Chloride 20 MEQ Tab.ER PO ONE (10:30)
[2021-11-05] MEDS: Acetaminophen 325 MG Tab PO PRN (17:56)
[2021-11-05] MEDS: Acetaminophen/HYDROcodone 325-5 MG Tab PO PRN (19:08)
[2021-11-05] MEDS: amLODIPine 5 MG Tab PO SCH (20:40)
[2021-11-05] MEDS: Lidocaine 5% 700 MG Patch TRDERM SCH (20:49)
[2021-11-05] MEDS ORDERED: Carvedilol 12.5 MG Tab PO SCH (21:00)
[2021-11-06] MEDS: cefTRIAXone 1 GM in Sodium Chloride 0.9% 50 ML IV SCH (06:31)
[2021-11-06] MEDS: Pantoprazole 40 MG Tab.CR PO SCH (08:55)
[2021-11-06] MEDS: Losartan 50 MG Tab PO SCH (08:55)
[2021-11-06] MEDS: Isosorbide Mononitrate 30 MG Tab.ER PO SCH (08:55)
[2021-11-06] MEDS: Carvedilol 12.5 MG Tab PO SCH ×2 (08:56→22:01)
[2021-11-06] MEDS ORDERED: Furosemide 40 MG/4 ML VIAL IVPUSH SCH (09:00)
[2021-11-06] MEDS: Acetaminophen/HYDROcodone 325-5 MG Tab PO PRN (17:44)
[2021-11-06] MEDS ORDERED: Furosemide 40 MG/4 ML VIAL IVPUSH ONE (18:00)
[2021-11-06] MEDS: amLODIPine 5 MG Tab PO SCH (22:03)
[2021-11-06] MEDS: Lidocaine 5% 700 MG Patch TRDERM SCH (22:03)
[2021-11-07] MEDS: cefTRIAXone 1 GM in Sodium Chloride 0.9% 50 ML IV SCH (05:15)
[2021-11-07] MEDS ORDERED: Furosemide 40 MG/4 ML VIAL IVPUSH ONE (07:00)
[2021-11-07] MEDS: Pantoprazole 40 MG Tab.CR PO SCH (07:45)
[2021-11-07] MEDS: Carvedilol 12.5 MG Tab PO SCH ×2 (09:03→21:13)
[2021-11-07] MEDS: Isosorbide Mononitrate 30 MG Tab.ER PO SCH (09:03)
[2021-11-07] MEDS: Losartan 50 MG Tab PO SCH (09:03)
[2021-11-07] MEDS: Acetaminophen 325 MG Tab PO PRN (12:01)
[2021-11-07] MEDS: Acetaminophen/HYDROcodone 325-5 MG Tab PO PRN (13:20)
[2021-11-07] MEDS: Furosemide 40 MG/4 ML VIAL IVPUSH SCH (19:22)
[2021-11-07] MEDS: amLODIPine 5 MG Tab PO SCH (21:13)
[2021-11-07] MEDS: Lidocaine 5% 700 MG Patch TRDERM SCH (21:14)
[2021-11-07] MEDS: Cephalexin 250 MG Cap PO SCH (21:14)
[2021-11-08] MEDS: Cephalexin 250 MG Cap PO SCH (05:53)
[2021-11-08] MEDS: Furosemide 40 MG/4 ML VIAL IVPUSH SCH (08:20)
[2021-11-08] MEDS: Losartan 50 MG Tab PO SCH (08:21)
[2021-11-08] MEDS: Isosorbide Mononitrate 30 MG Tab.ER PO SCH (08:21)
[2021-11-08] MEDS: Carvedilol 12.5 MG Tab PO SCH (08:21)
[2021-11-08] MEDS: Pantoprazole 40 MG Tab.CR PO SCH (08:21)
[2021-11-08 10:34] VITALS: BP 141/51; PULSE 57
== END 2021-11-08 13:14 | disposition home or self-care (01) | DRG 291 ==
LOC: JP.ED 18:24 → JP.MS 22:03
PROVIDERS: ADMIT Internal Medicine; ATTEND Hospitalist
PROC: 0W993ZZ Drainage of Right Pleural Cavity, Percutaneous Approach (ICD-10-PCS; 2021-11-05)
PROC: 0W9B3ZZ Drainage of Left Pleural Cavity, Percutaneous Approach (ICD-10-PCS; principal; 2021-11-06)
DX: I50.9 Heart failure, unspecified (principal); I13.0 Hypertensive heart and chronic kidney disease with heart failure and stage 1 through stage 4 chronic kidney disease, or unspecified chronic kidney disease; I50.33 Acute on chronic diastolic (congestive) heart failure; I10 Essential (primary) hypertension; J96.01 Acute respiratory failure with hypoxia; S32.009A Unspecified fracture of unspecified lumbar vertebra, initial encounter for closed fracture; J91.8 Pleural effusion in other conditions classified elsewhere; E11.9 Type 2 diabetes mellitus without complications; N39.0 Urinary tract infection, site not specified; Z66 Do not resuscitate; N18.30 Chronic kidney disease, stage 3 unspecified; E11.22 Type 2 diabetes mellitus with diabetic chronic kidney disease; M54.50 Low back pain, unspecified; B96.20 Unspecified Escherichia coli [E. coli] as the cause of diseases classified elsewhere; Z20.822 Contact with and (suspected) exposure to COVID-19; H54.7 Unspecified visual loss; M54.9 Dorsalgia, unspecified; D63.1 Anemia in chronic kidney disease; G43.909 Migraine, unspecified, not intractable, without status migrainosus; G89.29 Other chronic pain; I34.0 Nonrheumatic mitral (valve) insufficiency; F41.9 Anxiety disorder, unspecified; Z88.8 Allergy status to other drugs, medicaments and biological substances; Z88.1 Allergy status to other antibiotic agents; Z87.440 Personal history of urinary (tract) infections; Z90.49 Acquired absence of other specified parts of digestive tract; Z79.82 Long term (current) use of aspirin; Z79.899 Other long term (current) drug therapy; Z87.442 Personal history of urinary calculi; Z90.89 Acquired absence of other organs
CPT/HCPCS: 0241U; 36415; 71045; 80048; 80053; 81001; 82150; 82607; 82945; 83615; 84157; 84484; 85025; 85027; 87070; 87086; 87088; 87102; 87186; 87205; 88112; 88305; 89050; 93306; 96374; 97110; 97162; 97530; 97535; 99284; 99285; A9270-GY; J0696; J1940

== ENCOUNTER 2022-02-19 11:19 | Inpatient (IN) | payer MEDICARE, BC ==
[2022-02-19] MEDS ORDERED: Acetaminophen/HYDROcodone 325-5 MG Tab PO ONE (12:24)
[2022-02-19] MEDS ORDERED: LORazepam 0.5 MG Tab PO PRN (16:17)
[2022-02-19] MEDS ORDERED: Magnesium Hydroxide 400 MG/5 ML Susp 30 ML Cup PO PRN (16:17)
[2022-02-19] MEDS ORDERED: Ondansetron 4 MG/2 ML SDV IV PRN (16:17)
[2022-02-19] MEDS ORDERED: Morphine 10 MG/0.5 ML Oral Syringe PO PRN (16:17)
[2022-02-19] MEDS ORDERED: Acetaminophen 325 MG Tab PO PRN (16:17)
[2022-02-19] MEDS ORDERED: Melatonin 3 MG Tab PO PRN (16:17)
[2022-02-19] MEDS ORDERED: Trolamine Salicylate/Aloe Vera 10% Crm 85 GM Tube TOP PRN (16:36)
[2022-02-19] MEDS: Bumetanide 1 MG Tab PO SCH (17:04)
[2022-02-19] MEDS: Acetaminophen/HYDROcodone 325-5 MG Tab PO PRN ×2 (19:15→20:37)
[2022-02-19] MEDS: amLODIPine 5 MG Tab PO SCH (20:39)
[2022-02-19] MEDS: Carvedilol 12.5 MG Tab PO SCH (20:41)
[2022-02-20] MEDS: Acetaminophen/HYDROcodone 325-5 MG Tab PO PRN ×3 (03:20→21:51)
[2022-02-20] MEDS: Bumetanide 1 MG Tab PO SCH ×2 (07:23→16:21)
[2022-02-20] MEDS: Ondansetron 4 MG Tab.DIS PO PRN ×2 (08:07→14:10)
[2022-02-20] MEDS: Carvedilol 12.5 MG Tab PO SCH ×2 (09:46→21:24)
[2022-02-20] MEDS: Aspirin 81 MG Tab.Chew PO SCH (09:46)
[2022-02-20] MEDS: Spironolactone 25 MG Tab PO SCH (09:46)
[2022-02-20] MEDS: Losartan 25 MG Tab PO SCH (09:49)
[2022-02-20] MEDS: Clopidogrel 75 MG Tab PO SCH (09:49)
[2022-02-20] MEDS: Isosorbide Mononitrate 30 MG Tab.ER PO SCH (09:51)
[2022-02-20] MEDS: Lidocaine 5% 700 MG Patch TRDERM SCH (10:00)
[2022-02-20] MEDS: amLODIPine 5 MG Tab PO SCH (21:24)
[2022-02-21] MEDS: Acetaminophen/HYDROcodone 325-5 MG Tab PO PRN (05:57)
[2022-02-21] MEDS: Bumetanide 1 MG Tab PO SCH (07:31)
[2022-02-21] MEDS: Aspirin 81 MG Tab.Chew PO SCH (10:49)
[2022-02-21] MEDS: Spironolactone 25 MG Tab PO SCH (10:49)
[2022-02-21] MEDS: Carvedilol 12.5 MG Tab PO SCH (10:49)
[2022-02-21] MEDS: Losartan 25 MG Tab PO SCH (10:52)
[2022-02-21] MEDS: Isosorbide Mononitrate 30 MG Tab.ER PO SCH (10:52)
[2022-02-21] MEDS: Lidocaine 5% 700 MG Patch TRDERM SCH (10:53)
[2022-02-21] MEDS: Clopidogrel 75 MG Tab PO SCH (10:54)
[2022-02-21 10:55] VITALS: BP 145/61; PULSE 61
== END 2022-02-21 11:00 | disposition hospice, home (50) | DRG 291 ==
LOC: JP.ED 11:19 → JP.MS 15:48
PROVIDERS: ADMIT Internal Medicine; ATTEND Internal Medicine
DX: I11.0 Hypertensive heart disease with heart failure (principal); I50.9 Heart failure, unspecified; I13.0 Hypertensive heart and chronic kidney disease with heart failure and stage 1 through stage 4 chronic kidney disease, or unspecified chronic kidney disease; R09.02 Hypoxemia; M48.56XA Collapsed vertebra, not elsewhere classified, lumbar region, initial encounter for fracture; J96.01 Acute respiratory failure with hypoxia; D64.9 Anemia, unspecified; I50.43 Acute on chronic combined systolic (congestive) and diastolic (congestive) heart failure; J90 Pleural effusion, not elsewhere classified; R53.1 Weakness; R53.83 Other fatigue; Z20.822 Contact with and (suspected) exposure to COVID-19; E11.21 Type 2 diabetes mellitus with diabetic nephropathy; F03.90 Unspecified dementia, unspecified severity, without behavioral disturbance, psychotic disturbance, mood disturbance, and anxiety; Z74.1 Need for assistance with personal care; Z99.81 Dependence on supplemental oxygen; N18.32 Chronic kidney disease, stage 3b; I25.2 Old myocardial infarction; Z66 Do not resuscitate; Z51.5 Encounter for palliative care; H54.7 Unspecified visual loss; N93.8 Other specified abnormal uterine and vaginal bleeding; G89.29 Other chronic pain; M54.59 Other low back pain; G43.909 Migraine, unspecified, not intractable, without status migrainosus; F41.9 Anxiety disorder, unspecified; E11.22 Type 2 diabetes mellitus with diabetic chronic kidney disease; Z86.19 Personal history of other infectious and parasitic diseases; Z90.89 Acquired absence of other organs; Z79.82 Long term (current) use of aspirin; Z79.899 Other long term (current) drug therapy; Z79.02 Long term (current) use of antithrombotics/antiplatelets; Z88.1 Allergy status to other antibiotic agents; Z88.8 Allergy status to other drugs, medicaments and biological substances; Z87.440 Personal history of urinary (tract) infections; Z87.442 Personal history of urinary calculi; Z96.0 Presence of urogenital implants; Z90.49 Acquired absence of other specified parts of digestive tract; S32.019D Unspecified fracture of first lumbar vertebra, subsequent encounter for fracture with routine healing
CPT/HCPCS: 36415; 71045 ×2; 72100 ×2; 80048; 83880; 85025; A9270; U0002; 99285; Q0162